=== PATIENT | male | born 1940 | race Caucasian/White ===

== ENCOUNTER 2020-03-08 17:49 | Inpatient (IN) | payer MEDICARE, OTHER ==
[~2020-03-08] VITALS: Ht 182.9 cm; Wt 67.0 kg
[2020-03-08] MEDS ORDERED: OLAN5TAB3 PO (18:08)
[2020-03-08] MEDS ORDERED: TAMS0.4C97 PO (18:08)
[2020-03-08] MEDS ORDERED: ESCITALOPRAM OX10 MG PO (18:08)
[2020-03-08] MEDS ORDERED: LORA0.5T21 PO ×2 (18:08)
[2020-03-08] MEDS ORDERED: MEMA10TA PO (18:08)
[2020-03-08] MEDS ORDERED: ASPI-630 PO (18:08)
[2020-03-08] MEDS ORDERED: [UNRECOGNIZED DRUG - CODE] PO (18:08)
[2020-03-08] MEDS ORDERED: NITR100C63 PO (18:08)
[2020-03-08] MEDS ORDERED: SIMV40TA18 PO (18:08)
[2020-03-08] MEDS ORDERED: vitamin d3 PO (18:08)
[2020-03-08] MEDS ORDERED: TRAZ-125 PO (18:08)
[2020-03-08] MEDS ORDERED: OLAN2.5T3 PO (18:08)
[2020-03-08] MEDS ORDERED: ACET325T21 PO (18:08)
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
[2020-03-08 20:00] VITALS: BP 151/81
[2020-03-08] MEDS ORDERED: MAG HYDROX/AL HYDROX/SIMETH 30 ML ORAL.SUSP PO PRN (20:00)
[2020-03-08] MEDS ORDERED: METHYL SALICYLATE/MENTHOL TOPICAL OINTMENT 57GM TUBE. TP PRN (20:00)
[2020-03-08] MEDS ORDERED: ACETAMINOPHEN 325 MG TABLET PO PRN (20:00)
[2020-03-08] MEDS: OLANZapine 5 MG TABLET PO SCH (20:35)
[2020-03-08] MEDS: MEMANTINE 10 MG TABLET. PO SCH (20:35)
[2020-03-08] MEDS: traZODone 100 MG TABLET. PO SCH (20:35)
[2020-03-08] MEDS: NITROFURANTOIN MONOHYD/M-CRYST 100 MG CAPSULE. PO SCH (20:35)
[2020-03-08] MEDS: SIMVASTATIN 40 MG TABLET. PO SCH (20:35)
[2020-03-08 20:37] LABS: BASO % 1 % (0-3); EOS # 0.2 x10^3/uL (0.0-0.7); EOS % 2 % (0-3); HEMATOCRIT 45.7 % (39.0-53.0); LYMPH # 0.9 x10^3/uL (1.0-4.8); LYMPH % 13 % (24-48); MEAN CORPUSCULAR HEMOGLOBIN 30 pg (25-35); MEAN CORPUSCULAR HGB CONC 33 g/dL (31-37); MEAN CORPUSCULAR VOLUME 91 fL (79-100); MONO % 14 % (0-9); NEUT % 70 % (31-73); PLATELET COUNT 239 x10^3/uL (140-400); WHITE BLOOD COUNT 7.1 x10^3/uL (4.0-11.0)
[2020-03-08 20:41] LABS: ALBUMIN 3.9 g/dL (3.4-5.0); CALCIUM 9.3 mg/dL (8.5-10.1); CREATININE 1.2 mg/dL (0.7-1.3); GFR 58.3; MAGNESIUM 2.4 mg/dL (1.8-2.4); POTASSIUM 3.8 mmol/L (3.5-5.1); TOTAL BILIRUBIN 0.3 mg/dL (0.2-1.0); TOTAL PROTEIN 7.8 g/dL (6.4-8.2)
[2020-03-08] MEDS ORDERED: MAGNESIUM SULFATE PO SCH (21:00)
--- NOTE | 2020-03-08 22:10 | PDOC ---
Exam Note: Shravan Note: Please also refer to the separate dictated note~for this date of service dictated separately.~Patient seen individually. Discussed the patient with Nursing staff reviewed the chart.~Reviewed interim history and current functioning. Reviewed vital signs,~Labs/ Radiology~and current medications noted below. Continue current treatment with the changes noted in the dictated addendum note Assessment: Vital Signs/I&O: Vital Signs Date Time Temp Pulse Resp B/P (MAP) Pulse Ox O2 Delivery O2 Flow Rate FiO2 03/08/20 20:00 97.6 60 18 151/81 (104) 96 Room Air Labs: Laboratory Tests Test 03/08/20 20:15 White Blood Count 7.1 x10^3/uL (4.0-11.0) Red Blood Count 5.00 x10^6/uL (4.30-5.70) Hemoglobin 15.0 g/dL (13.0-17.5) Hematocrit 45.7 % (39.0-53.0) Mean Corpuscular Volume 91 fL (79-100) Mean Corpuscular Hemoglobin 30 pg (25-35) Mean Corpuscular Hemoglobin Concent 33 g/dL (31-37) Red Cell Distribution Width 15.0 % (11.5-14.5) H Platelet Count 239 x10^3/uL (140-400) Neutrophils (%) (Auto) 70 % (31-73) Lymphocytes (%) (Auto) 13 % (24-48) L Monocytes (%) (Auto) 14 % (0-9) H Eosinophils (%) (Auto) 2 % (0-3) Basophils (%) (Auto) 1 % (0-3) Neutrophils # (Auto) 5.0 x10^3uL (1.8-7.7) Lymphocytes # (Auto) 0.9 x10^3/uL (1.0-4.8) L Monocytes # (Auto) 1.0 x10^3/uL (0.0-1.1) Eosinophils # (Auto) 0.2 x10^3/uL (0.0-0.7) Basophils # (Auto) 0.0 x10^3/uL (0.0-0.2) Sodium Level 144 mmol/L (136-145) Potassium Level 3.8 mmol/L (3.5-5.1) Chloride Level 106 mmol/L (98-107) Carbon Dioxide Level 31 mmol/L (21-32) Anion Gap 7 (6-14) Blood Urea Nitrogen 20 mg/dL (8-26) Creatinine 1.2 mg/dL (0.7-1.3) Estimated GFR (Cockcroft-Gault) 58.3 BUN/Creatinine Ratio 17 (6-20) Glucose Level 87 mg/dL (70-99) Calcium Level 9.3 mg/dL (8.5-10.1) Magnesium Level 2.4 mg/dL (1.8-2.4) Total Bilirubin 0.3 mg/dL (0.2-1.0) Aspartate Amino Transferase (AST) 16 U/L (15-37) Alanine Aminotransferase (ALT) 22 U/L (16-63) Alkaline Phosphatase 60 U/L (46-116) Total Protein 7.8 g/dL (6.4-8.2) Albumin 3.9 g/dL (3.4-5.0) Albumin/Globulin Ratio 1.0 (1.0-1.7) Current Medications: Meds: Current Medications Medications (Trade) Dose Ordered Sig/Dl Route PRN Reason Start Time Stop Time Status Last Admin Dose Admin Simvastatin (Zocor) 40 mg HS PO 03/08/20 21:00 03/08/20 20:35 Nitrofurantoin Macrocrystals (Macrobid) 100 mg BID PO 03/08/20 21:00 03/14/20 20:59 03/08/20 20:35 Memantine (Namenda) 10 mg BID PO 03/08/20 21:00 03/08/20 20:35 Olanzapine (ZyPREXA) 5 mg HS PO 03/08/20 21:00 03/08/20 20:35 Trazodone HCl (Desyrel) 100 mg HS PO 03/08/20 21:00 03/08/20 20:35 I have reviewed the current psychotropics carefully including drug interactions. Risk benefit ratio favors no change other than as noted in my dictated progress note. LARRY LOUIS MD Mar 08, 2020 22:10
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
[2020-03-09] MEDS: LORazepam 0.5 MG TABLET PO PRN (04:46)
--- NOTE | 2020-03-09 04:55 | NUR ---
Pt attempting to get up without assist, gait unsteady. Staff attempted to toilet pt without success and pt was escorted to the day room with staff. Pt restless, disorganized, and anxious. Pt continues to attempt to get up without assist despite staff reminders. PRN Ativan administered.
[2020-03-09 05:42] VITALS: BP 161/72
[2020-03-09] MEDS ORDERED: CITALOPRAM 20 MG TABLET. PO SCH (09:00)
[2020-03-09] MEDS: TAMSULOSIN 0.4 MG CAP.ER.24H. PO SCH (09:15)
[2020-03-09] MEDS: NITROFURANTOIN MONOHYD/M-CRYST 100 MG CAPSULE. PO SCH ×2 (09:15→20:14)
[2020-03-09] MEDS: CHOLECALCIFEROL (VITAMIN D3) 1,000 UNIT TABLET PO SCH (09:15)
[2020-03-09] MEDS: OLANZapine 2.5 MG TABLET PO SCH (09:15)
[2020-03-09] MEDS: ASPIRIN CHEWABLE 81 MG TABLET. PO SCH (09:15)
[2020-03-09] MEDS: MEMANTINE 10 MG TABLET. PO SCH ×2 (09:15→20:14)
--- NOTE | 2020-03-09 10:11 | NUR ---
Patient coal Addendum: 03/09/20 at 1013 by JEREL STANLEY RN calm and cooperative. Patient soft spoken and difficult to understand. Patient calmly eating breakfast and is pleasant towards staff. no further needs at this time.
[2020-03-09 11:18] LABS: THYROID STIM HORMONE (TSH) 2.825 uIU/mL (0.358-3.740)
[2020-03-09] MEDS: LORazepam 0.5 MG TABLET PO SCH (12:43)
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
[2020-03-09 16:13] VITALS: BP 130/72
[2020-03-09] MEDS: MIRTAZAPINE 7.5 MG TABLET. PO SCH (20:14)
[2020-03-09] MEDS: OLANZapine 5 MG TABLET PO SCH (20:14)
[2020-03-09] MEDS: SIMVASTATIN 40 MG TABLET. PO SCH (20:14)
[2020-03-09] MEDS: traZODone 100 MG TABLET. PO SCH (20:15)
--- NOTE | 2020-03-09 21:56 | PDOC ---
Exam Note: Shravan Note: Please also refer to the separate dictated note~for this date of service dictated separately.~Patient seen individually. Discussed the patient with Nursing staff reviewed the chart.~Reviewed interim history and current functioning. Reviewed vital signs,~Labs/ Radiology~and current medications noted below. Continue current treatment with the changes noted in the dictated addendum note Assessment: Vital Signs/I&O: Vital Signs Date Time Temp Pulse Resp B/P (MAP) Pulse Ox O2 Delivery O2 Flow Rate FiO2 03/09/20 16:13 97.7 52 16 130/72 (91) 96 Room Air I & O 03/08/20 03/08/20 03/09/20 15:00 23:00 07:00 Intake Total 360 ml Balance 360 ml Current Medications: Meds: Current Medications Medications (Trade) Dose Ordered Sig/Dl Route PRN Reason Start Time Stop Time Status Last Admin Dose Admin Aspirin (Aspirin Chewable) 81 mg DAILY PO 03/09/20 09:00 03/09/20 09:15 Tamsulosin HCl (Flomax) 0.4 mg DAILY PO 03/09/20 09:00 03/09/20 09:15 Citalopram Hydrobromide (CeleXA) 20 mg DAILY PO 03/09/20 09:00 03/09/20 17:11 DC 03/09/20 09:15 Vitamin D (Vitamin D3) 1,000 unit DAILY PO 03/09/20 09:00 03/09/20 09:15 Lorazepam (Ativan) 0.5 mg AFTRNOON PO 03/09/20 14:00 03/09/20 12:43 Olanzapine (ZyPREXA) 2.5 mg DAILY PO 03/09/20 09:00 03/09/20 09:15 Mirtazapine (Remeron) 7.5 mg QHS PO 03/09/20 21:00 03/09/20 20:14 I have reviewed the current psychotropics carefully including drug interactions. Risk benefit ratio favors no change other than as noted in my dictated progress note. Diagnosis: Problems: (1) Major neurocognitive disorder (2) Dementia in Alzheimer's disease with delusions (3) Dementia of the Alzheimer's type with early onset with behavioral disturbance (4) Dementia in Alzheimer's disease with depression (5) Dementia, vascular, with delusions (6) Dementia, vascular, with depression (7) Anxiety disorder, unspecified (8) Impulse control disorder, unspecified LARRY LOUIS MD Mar 09, 2020 21:56
--- NOTE | 2020-03-09 23:15 | NUR ---
Pt wandering unit all evening. Pt highly disorganized, needing many reminders to keep his mask on. Compliant with whole medications. A/O to name.
[2020-03-10 02:06] LABS: THYROXINE 6.1 ug/dL (4.5-12.0)
[2020-03-10 04:55] VITALS: BP 146/98
[2020-03-10 05:37] LABS: HEMOGLOBIN A1C 5.5 % (4.8-5.6)
[2020-03-10] MEDS: SERTRALINE 50 MG TABLET. PO SCH (08:40)
[2020-03-10] MEDS: MEMANTINE 10 MG TABLET. PO SCH ×2 (08:40→20:20)
[2020-03-10] MEDS: TAMSULOSIN 0.4 MG CAP.ER.24H. PO SCH (08:40)
[2020-03-10] MEDS: CHOLECALCIFEROL (VITAMIN D3) 1,000 UNIT TABLET PO SCH (08:41)
[2020-03-10] MEDS: ASPIRIN CHEWABLE 81 MG TABLET. PO SCH (08:41)
[2020-03-10] MEDS: NITROFURANTOIN MONOHYD/M-CRYST 100 MG CAPSULE. PO SCH ×2 (08:41→20:20)
[2020-03-10] MEDS: OLANZapine 2.5 MG TABLET PO SCH (08:41)
--- NOTE | 2020-03-10 09:57 | NUR ---
Patient encouraged to wear mask out of room. Patient calm and cooperative. Patient has no further needs.
[2020-03-10] MEDS: LORazepam 0.5 MG TABLET PO SCH (12:43)
[2020-03-10 16:08] VITALS: BP 129/74
[2020-03-10] MEDS: traZODone 100 MG TABLET. PO SCH (20:20)
[2020-03-10] MEDS: SIMVASTATIN 40 MG TABLET. PO SCH (20:20)
[2020-03-10] MEDS: MIRTAZAPINE 7.5 MG TABLET. PO SCH (20:20)
[2020-03-10] MEDS: OLANZapine 5 MG TABLET PO SCH (20:20)
--- NOTE | 2020-03-10 21:58 | PDOC ---
Exam Note: Shravan Note: Please also refer to the separate dictated note~for this date of service dictated separately.~Patient seen individually. Discussed the patient with Nursing staff reviewed the chart.~Reviewed interim history and current functioning. Reviewed vital signs,~Labs/ Radiology~and current medications noted below. Continue current treatment with the changes noted in the dictated addendum note Assessment: Vital Signs/I&O: Vital Signs Date Time Temp Pulse Resp B/P (MAP) Pulse Ox O2 Delivery O2 Flow Rate FiO2 03/10/20 19:42 98.8 96 03/10/20 16:08 66 16 129/74 (92) 03/09/20 16:13 Room Air I & O 03/09/20 03/09/20 03/10/20 15:00 23:00 07:00 Intake Total 240 ml 360 ml Balance 240 ml 360 ml Current Medications: Meds: Current Medications Medications (Trade) Dose Ordered Sig/Dl Route PRN Reason Start Time Stop Time Status Last Admin Dose Admin Sertraline HCl (Zoloft) 50 mg DAILY PO 03/10/20 09:00 03/10/20 08:40 I have reviewed the current psychotropics carefully including drug interactions. Risk benefit ratio favors no change other than as noted in my dictated progress note. Diagnosis: Problems: (1) Impulse control disorder, unspecified (2) Anxiety disorder, unspecified (3) Dementia, vascular, with depression (4) Dementia, vascular, with delusions (5) Dementia in Alzheimer's disease with depression (6) Dementia in Alzheimer's disease with delusions (7) Dementia of the Alzheimer's type with early onset with behavioral disturbance (8) Major neurocognitive disorder LARRY LOUIS MD Mar 10, 2020 21:58
--- NOTE | 2020-03-10 22:23 | NUR ---
Pt wandering unit this evening needing reminders to keep his mask on. Compliant with whole medications. Pleasantly confused.
[2020-03-11 05:46] VITALS: BP 138/62
[2020-03-11] MEDS: SERTRALINE 50 MG TABLET. PO SCH (08:56)
[2020-03-11] MEDS: NITROFURANTOIN MONOHYD/M-CRYST 100 MG CAPSULE. PO SCH ×2 (08:56→20:11)
[2020-03-11] MEDS: CHOLECALCIFEROL (VITAMIN D3) 1,000 UNIT TABLET PO SCH (08:56)
[2020-03-11] MEDS: TAMSULOSIN 0.4 MG CAP.ER.24H. PO SCH (08:56)
[2020-03-11] MEDS: MEMANTINE 10 MG TABLET. PO SCH ×2 (08:56→20:11)
[2020-03-11] MEDS: ASPIRIN CHEWABLE 81 MG TABLET. PO SCH (08:56)
--- NOTE | 2020-03-11 10:52 | NUR ---
Pt is pleasant, wandering hallway, forgets to wear mask or takes mask off. Found wandering in patients rooms. Pt needs frequent reminders to wear mask. Pt stated to nurse, "Im looking for people who are ready for war." RN directed patient back to his room, pt compliant. Pt compliant with meds and assessment but does have short attention span. WCTM.
[2020-03-11] MEDS: LORazepam 0.5 MG TABLET PO SCH (13:11)
[2020-03-11] MEDS: MAGNESIUM HYDROXIDE 2,400 MG/30 ML ORAL.SUSP. PO PRN (13:11)
--- NOTE | 2020-03-11 14:05 | NUR ---
ACTIVITY THERAPY ASSESSMENT Completed based on notes and interview. Pt. was sitting in the hallway but agreeable to speak with TRANSFORMER STOCK CLERK. He didn't have much to say but when asked if he had been here before, he said yes, him and his dad built this place. 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 He did mention how he always has on the "tv and radio" on. Pt. goes by "Arnol," talked softly and was a little hard to understand, he wanders the unit, often into other people's room, and needs reminders to wear his mask correctly. Pt. will need guidance and support to engage activities. Pt. is pleasantly confused and generally controlled and cooperative. Initial goal aimed to increase leisure engagement: Pt. will participate in at least three individual Activity Therapy sessions before discharge.
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
[2020-03-11 16:14] VITALS: BP 143/82
[2020-03-11] MEDS: SIMVASTATIN 40 MG TABLET. PO SCH (20:11)
[2020-03-11] MEDS: MIRTAZAPINE 7.5 MG TABLET. PO SCH (20:11)
[2020-03-11] MEDS: OLANZapine 5 MG TABLET PO SCH (20:11)
[2020-03-11] MEDS: traZODone 100 MG TABLET. PO SCH (20:11)
--- NOTE | 2020-03-11 21:56 | PDOC ---
Exam Note: Shravan Note: Please also refer to the separate dictated note~for this date of service dictated separately.~Patient seen individually. Discussed the patient with Nursing staff reviewed the chart.~Reviewed interim history and current functioning. Reviewed vital signs,~Labs/ Radiology~and current medications noted below. Continue current treatment with the changes noted in the dictated addendum note Assessment: Vital Signs/I&O: Vital Signs Date Time Temp Pulse Resp B/P (MAP) Pulse Ox O2 Delivery O2 Flow Rate FiO2 03/11/20 16:14 98.4 59 18 143/82 (102) 97 03/09/20 16:13 Room Air I & O 03/10/20 03/10/20 03/11/20 15:00 23:00 07:00 Intake Total 300 ml 360 ml Balance 300 ml 360 ml Current Medications: I have reviewed the current psychotropics carefully including drug interactions. Risk benefit ratio favors no change other than as noted in my dictated progress note. Diagnosis: Problems: (1) Impulse control disorder, unspecified (2) Anxiety disorder, unspecified (3) Dementia, vascular, with depression (4) Dementia, vascular, with delusions (5) Dementia in Alzheimer's disease with depression (6) Dementia in Alzheimer's disease with delusions (7) Dementia of the Alzheimer's type with early onset with behavioral disturbance (8) Major neurocognitive disorder LARRY LOUIS MD Mar 11, 2020 21:56
--- NOTE | 2020-03-11 23:51 | NUR ---
Pt wandering around unit all evening. Compliant with whole medications and shower. Pleasantly confused. Often forgets to wear mask and needs frequent reminders.
[2020-03-12 05:51] VITALS: BP 107/60
--- NOTE | 2020-03-12 07:01 | PDOC ---
Exam Note: Shravan Note: This note is a late entry for 03/09/2020 covers elements not covered in my initial note. Subjective: The patient was evaluated face to face in the evening of 03/09/2020 with Cordell SALAZAR. The patient slept 3-1/4 hours previous evening. He has been in his room, much of the day and more-so after lunch, somewhat soft-spoken compliant with medications, oriented x1. Review of Systems: No CV, , pulmonary, eye, ENT system symptoms on review. Reliability poor. Mental Status Exam: Oriented to himself. Insight and judgment, recent and remote memory, attention and concentration, fund of knowledge is poor consistent with his diagnosis. Laboratory Data: Reviewed. Impression: Major neurocognitive disorder, Alzheimer, vascular with delusion, depression, behavioral disturbance. Anxiety disorder unspecified. Impulse con trol disorder unspecified. Plan: Continue psychotropics from initial note. Change Celexa to Zoloft 50 mg a day. Start Remeron 7.5 mg h.s. for insomnia and anxiety. Maintain Ativan p.r.n. We will stop the Ativan schedule 0.5 mg 1400 hours. Maintain Namenda 10 mg b.i.d., trazodone 100 mg h.s., Zyprexa 2.5 mg daily and 5 mg h.s. We may need to reduce this unless we see psychotic symptoms resurfacing. Assessment: Vital Signs/I&O: Vital Signs Date Time Temp Pulse Resp B/P (MAP) Pulse Ox O2 Delivery O2 Flow Rate FiO2 03/12/20 05:51 98.1 54 16 107/60 (76) 93 03/09/20 16:13 Room Air I & O 03/11/20 03/11/20 03/12/20 15:00 23:00 07:00 Intake Total 720 ml 80 ml 120 ml Balance 720 ml 80 ml 120 ml Current Medications: I have reviewed the current psychotropics carefully including drug interactions. Risk benefit ratio favors no change other than as noted in my dictated progress note. Diagnosis: Problems: (1) Impulse control disorder, unspecified (2) Anxiety disorder, unspecified (3) Dementia, vascular, with depression (4) Dementia, vascular, with delusions (5) Dementia in Alzheimer's disease with depression (6) Dementia in Alzheimer's disease with delusions (7) Dementia of the Alzheimer's type with early onset with behavioral disturbance (8) Major neurocognitive disorder LARRY LOUIS MD Mar 12, 2020 07:01
--- NOTE | 2020-03-12 07:40 | PDOC ---
Exam Note: Shravan Note: This note is a late entry for 03/10/2020 covers elements not covered in my initial note. Subjective: The patient was evaluated on telehealth rounds in the evening of 03/10/2020 with Zeyad Hu RN. Nursing report was with Cordell SALAZAR. He was somewhat more verbal in the morning, later again not very interactive. Speech is low in rate and rhythm, low in volume. Review of Systems: No CV, , pulmonary, eye, ENT system symptoms on review. Gait unsteady. Mental Status Exam: Oriented to himself. Insight and judgment, recent and remote memory, attention and concentration, fund of knowledge is poor consistent with his diagnoses. Laboratory Data: Reviewed. Impression: Major neurocognitive disorder Alzheimer vascular with delusion, depression, behavioral disturbance. Anxiety disorder unspecified. Impulse control disorder unspecified. Plan: Continue psychotropics from initial note. We will go ahead and stop the a.m. Zyprexa 2.5 mg. Continue 5 mg h.s. and in 3 days drop the h.s. dosage down to 2.5 mg a day to help reduce daytime sedation. Continue rest of the psy chotropics unchanged including Ativan 0.5 mg at 1400, Namenda 10 mg b.i.d., trazodone h.s. Remeron and Zoloft. Adjust further as clinically indicated. Assessment: Vital Signs/I&O: Vital Signs Date Time Temp Pulse Resp B/P (MAP) Pulse Ox O2 Delivery O2 Flow Rate FiO2 03/12/20 05:51 98.1 54 16 107/60 (76) 93 03/09/20 16:13 Room Air I & O 03/11/20 03/11/20 03/12/20 15:00 23:00 07:00 Intake Total 720 ml 80 ml 120 ml Balance 720 ml 80 ml 120 ml Current Medications: I have reviewed the current psychotropics carefully including drug interactions. Risk benefit ratio favors no change other than as noted in my dictated progress note. Diagnosis: Problems: (1) Impulse control disorder, unspecified (2) Anxiety disorder, unspecified (3) Dementia, vascular, with depression (4) Dementia, vascular, with delusions (5) Dementia in Alzheimer's disease with depression (6) Dementia in Alzheimer's disease with delusions (7) Dementia of the Alzheimer's type with early onset with behavioral disturbance (8) Major neurocognitive disorder LARRY LOUIS MD Mar 12, 2020 07:40
[2020-03-12] MEDS: ASPIRIN CHEWABLE 81 MG TABLET. PO SCH (09:39)
[2020-03-12] MEDS: CHOLECALCIFEROL (VITAMIN D3) 1,000 UNIT TABLET PO SCH (09:39)
[2020-03-12] MEDS: NITROFURANTOIN MONOHYD/M-CRYST 100 MG CAPSULE. PO SCH ×2 (09:39→20:39)
[2020-03-12] MEDS: MEMANTINE 10 MG TABLET. PO SCH ×2 (09:40→20:39)
[2020-03-12] MEDS: SERTRALINE 50 MG TABLET. PO SCH (09:40)
[2020-03-12] MEDS: TAMSULOSIN 0.4 MG CAP.ER.24H. PO SCH (09:42)
[2020-03-12] MEDS: LORazepam 0.5 MG TABLET PO SCH (13:31)
--- NOTE | 2020-03-12 13:53 | NUR ---
Patient has been in his room and in other rooms this shift. He is cooperative with medications however this morning he was quite confused and spit them into the water cup. Medication was then given meds crushed in pudding. He is very confused and forgets to wear his mask while in the hallways or other common areas. He can be verbally redirected to put the mask back on but will forget it again shortly after. Patient has had no aggression, he slept 6.5 hours last night.
[2020-03-12 16:13] VITALS: BP 124/70
[2020-03-12] MEDS: traZODone 100 MG TABLET. PO SCH (20:39)
[2020-03-12] MEDS: MIRTAZAPINE 7.5 MG TABLET. PO SCH (20:39)
[2020-03-12] MEDS: SIMVASTATIN 40 MG TABLET. PO SCH (20:39)
[2020-03-12] MEDS: OLANZapine 5 MG TABLET PO SCH (20:39)
--- NOTE | 2020-03-12 22:05 | PDOC ---
Exam Note: Shravan Note: Please also refer to the separate dictated note~for this date of service dictated separately.~Patient seen individually. Discussed the patient with Nursing staff reviewed the chart.~Reviewed interim history and current functioning. Reviewed vital signs,~Labs/ Radiology~and current medications noted below. Continue current treatment with the changes noted in the dictated addendum note Assessment: Vital Signs/I&O: Vital Signs Date Time Temp Pulse Resp B/P (MAP) Pulse Ox O2 Delivery O2 Flow Rate FiO2 03/12/20 16:13 97.5 56 16 124/70 (88) 93 Room Air I & O 03/11/20 03/11/20 03/12/20 15:00 23:00 07:00 Intake Total 720 ml 80 ml 120 ml Balance 720 ml 80 ml 120 ml Current Medications: I have reviewed the current psychotropics carefully including drug interactions. Risk benefit ratio favors no change other than as noted in my dictated progress note. Diagnosis: Problems: (1) Impulse control disorder, unspecified (2) Anxiety disorder, unspecified (3) Dementia, vascular, with depression (4) Dementia, vascular, with delusions (5) Dementia in Alzheimer's disease with depression (6) Dementia in Alzheimer's disease with delusions (7) Dementia of the Alzheimer's type with early onset with behavioral disturbance (8) Major neurocognitive disorder LARRY LOUIS MD Mar 12, 2020 22:05
--- NOTE | 2020-03-12 23:42 | NUR ---
Nursing Note: Location of Patient during Assessment: Pt wandering in hallway at shift change. Behaviors Mood and Affect this shift: Pt calm, disorganized, and pleasantly confused. Medication Compliant: Compliant with HS medications administered crushed in pudding. Assessment Compliant: Cooperative and compliant with assessment. Response After Interventions: Pt calm, pleasantly confused.
[2020-03-13 06:38] VITALS: BP 96/58
--- NOTE | 2020-03-13 07:15 | PDOC ---
Exam Note: Shravan Note: This note is a late entry for 03/11/2020 covers elements not covered in my initial note. Subjective: The patient was reviewed face to face in the morning of 03/11/2020 with treatment team meeting with Crys (social service staff), Linda, activity therapy, and Nba SALAZAR. The patient slept 7-1/4 hours previous night. He remains confused, but less agitated, little more verbal. Review of Systems: No CV, , pulmonary, eye, ENT system symptoms on review. Gait unsteady. Reliability poor. Mental Status Exam: He is quite pleasant, but confused with short-term memory deficits. No suicidal or homicidal ideation. Laboratory Data: Reviewed. Impression: Major neurocognitive disorder Alzheimer vascular with delusion, depression, behavioral disturbance. Anxiety disorder unspecified. Impulse control disorder unspecified. Plan: No change from initial note. Assessment: Vital Signs/I&O: Vital Signs Date Time Temp Pulse Resp B/P (MAP) Pulse Ox O2 Delivery O2 Flow Rate FiO2 03/13/20 06:38 98.0 58 20 96/58 (71) 94 03/12/20 16:13 Room Air I & O 03/12/20 03/12/20 03/13/20 15:00 23:00 07:00 Intake Total 720 ml 360 ml Balance 720 ml 360 ml Current Medications: I have reviewed the current psychotropics carefully including drug interactions. Risk benefit ratio favors no change other than as noted in my dictated progress note. Diagnosis: Problems: (1) Impulse control disorder, unspecified (2) Anxiety disorder, unspecified (3) Dementia, vascular, with depression (4) Dementia, vascular, with delusions (5) Dementia in Alzheimer's disease with depression (6) Dementia in Alzheimer's disease with delusions (7) Dementia of the Alzheimer's type with early onset with behavioral disturbance (8) Major neurocognitive disorder LARRY LOUIS MD Mar 13, 2020 07:15
--- NOTE | 2020-03-13 07:27 | PDOC ---
Exam Note: Shravan Note: This note is a late entry for 03/12/2020 covers elements not covered in my initial note. Subjective: The patient was evaluated on telehealth rounds in the evening of 03/12/2020 because of the COVID-19 pandemic restrictions with [facility] nursing aid. Nursing report was with Tricia SALAZAR. He has been wandering. No agitation. He slept 6-1/2 hours, took his medications. He is on Ativan 0.25 mg 1400 hours. We will go ahead and stop this since it may be causing some paradoxical disinhibition. Review of Systems: No CV, , pulmonary, eye, ENT system symptoms on review. Reliability poor. Mental Status Exam: Oriented to himself. Insight and judgment, recent and remote memory, attention and concentration, fund of knowledge is poor consistent with his diagnoses. Laboratory Data: Reviewed. Impression: Major neurocognitive disorder Alzheimer vascular with delusion, depression, behavioral disturbance. Anxiety disorder unspecified. Impulse co ntrol disorder unspecified. Plan: Continue psychotropics from initial note. Stop the Ativan in the afternoon. Taper the scheduled Zyprexa. Adjust further as clinically indicated. Assessment: Vital Signs/I&O: Vital Signs Date Time Temp Pulse Resp B/P (MAP) Pulse Ox O2 Delivery O2 Flow Rate FiO2 03/13/20 06:38 98.0 58 20 96/58 (71) 94 03/12/20 16:13 Room Air I & O 03/12/20 03/12/20 03/13/20 15:00 23:00 07:00 Intake Total 720 ml 360 ml Balance 720 ml 360 ml Current Medications: I have reviewed the current psychotropics carefully including drug interactions. Risk benefit ratio favors no change other than as noted in my dictated progress note. Diagnosis: Problems: (1) Impulse control disorder, unspecified (2) Anxiety disorder, unspecified (3) Dementia, vascular, with depression (4) Dementia, vascular, with delusions (5) Dementia in Alzheimer's disease with depression (6) Dementia in Alzheimer's disease with delusions (7) Dementia of the Alzheimer's type with early onset with behavioral disturbance (8) Major neurocognitive disorder LARRY LOUIS MD Mar 13, 2020 07:27
[2020-03-13] MEDS: ASPIRIN CHEWABLE 81 MG TABLET. PO SCH (08:25)
[2020-03-13] MEDS: MEMANTINE 10 MG TABLET. PO SCH ×2 (08:25→21:08)
[2020-03-13] MEDS: SERTRALINE 50 MG TABLET. PO SCH (08:25)
[2020-03-13] MEDS: TAMSULOSIN 0.4 MG CAP.ER.24H. PO SCH (08:25)
[2020-03-13] MEDS: NITROFURANTOIN MONOHYD/M-CRYST 100 MG CAPSULE. PO SCH ×2 (08:25→21:07)
[2020-03-13] MEDS: CHOLECALCIFEROL (VITAMIN D3) 1,000 UNIT TABLET PO SCH (08:26)
--- NOTE | 2020-03-13 16:06 | NUR ---
patient is compliant with medications, he is disorganized and wanders into other patients room. He can be easily redirected and is calm and cooperative. No adverse behaviors noted at this time.
[2020-03-13 16:23] VITALS: BP 138/76
[2020-03-13] MEDS: SIMVASTATIN 40 MG TABLET. PO SCH (21:07)
[2020-03-13] MEDS: traZODone 100 MG TABLET. PO SCH (21:07)
[2020-03-13] MEDS: OLANZapine 5 MG TABLET PO SCH (21:07)
[2020-03-13] MEDS: MIRTAZAPINE 7.5 MG TABLET. PO SCH (21:08)
--- NOTE | 2020-03-13 22:02 | PDOC ---
Exam Note: Shravan Note: Please also refer to the separate dictated note~for this date of service dictated separately.~Patient seen individually. Discussed the patient with Nursing staff reviewed the chart.~Reviewed interim history and current functioning. Reviewed vital signs,~Labs/ Radiology~and current medications noted below. Continue current treatment with the changes noted in the dictated addendum note Assessment: Vital Signs/I&O: Vital Signs Date Time Temp Pulse Resp B/P (MAP) Pulse Ox O2 Delivery O2 Flow Rate FiO2 03/13/20 21:48 97.7 94 03/13/20 16:23 53 17 138/76 (96) 03/12/20 16:13 Room Air I & O 03/12/20 03/12/20 03/13/20 15:00 23:00 07:00 Intake Total 720 ml 360 ml Balance 720 ml 360 ml Current Medications: I have reviewed the current psychotropics carefully including drug interactions. Risk benefit ratio favors no change other than as noted in my dictated progress note. Diagnosis: Problems: (1) Impulse control disorder, unspecified (2) Anxiety disorder, unspecified (3) Dementia, vascular, with depression (4) Dementia, vascular, with delusions (5) Dementia in Alzheimer's disease with depression (6) Dementia in Alzheimer's disease with delusions (7) Dementia of the Alzheimer's type with early onset with behavioral disturbance (8) Major neurocognitive disorder LARRY LOUIS MD Mar 13, 2020 22:02
--- NOTE | 2020-03-14 00:10 | NUR ---
Nursing Note: Location of Patient during Assessment: Pt sitting in hallway. Behaviors Mood and Affect this shift: Pt calm, pleasantly confused, and disorganized. Medication Compliant: Pt compliant with medications administered whole this evening. Assessment Compliant: Cooperative and compliant with assessment and cares. Response After Interventions: Pt wandering in his room, restless, and having difficulty sleeping this shift. Pt currently sitting quietly in the hallway.
--- NOTE | 2020-03-14 00:12 | NUR ---
Nursing Note: Location of Patient during Assessment: Pt sitting quietly in the hallway. Behaviors Mood and Affect this shift: Pt calm, interactive, and pleasantly confused. Medication Compliant: Pt compliant with medications administered whole this evening. Assessment Compliant: Pt cooperative with assessment and cares. Response After Interventions: Pt currently resting in bed with eyes closed. Addendum: 03/14/20 at 0015 by YOLANDA CHISHOLM RN CHARTED ON THE WRONG PATIENT.
[2020-03-14 07:12] VITALS: BP 148/92
[2020-03-14] MEDS: NITROFURANTOIN MONOHYD/M-CRYST 100 MG CAPSULE. PO SCH (08:53)
[2020-03-14] MEDS: ASPIRIN CHEWABLE 81 MG TABLET. PO SCH (08:54)
[2020-03-14] MEDS: TAMSULOSIN 0.4 MG CAP.ER.24H. PO SCH (08:54)
[2020-03-14] MEDS: CHOLECALCIFEROL (VITAMIN D3) 1,000 UNIT TABLET PO SCH (08:54)
[2020-03-14] MEDS: MEMANTINE 10 MG TABLET. PO SCH ×2 (08:54→21:53)
[2020-03-14] MEDS: SERTRALINE 50 MG TABLET. PO SCH (08:54)
[2020-03-14 16:36] VITALS: BP 123/79
[2020-03-14] MEDS: OLANZapine 2.5 MG TABLET PO SCH (21:53)
[2020-03-14] MEDS: MIRTAZAPINE 7.5 MG TABLET. PO SCH (21:53)
[2020-03-14] MEDS: traZODone 100 MG TABLET. PO SCH (21:53)
[2020-03-14] MEDS: SIMVASTATIN 40 MG TABLET. PO SCH (21:53)
--- NOTE | 2020-03-14 22:03 | PDOC ---
Exam Note: Shravan Note: Please also refer to the separate dictated note~for this date of service dictated separately.~Patient seen individually. Discussed the patient with Nursing staff reviewed the chart.~Reviewed interim history and current functioning. Reviewed vital signs,~Labs/ Radiology~and current medications noted below. Continue current treatment with the changes noted in the dictated addendum note Assessment: Vital Signs/I&O: Vital Signs Date Time Temp Pulse Resp B/P (MAP) Pulse Ox O2 Delivery O2 Flow Rate FiO2 03/14/20 16:36 97.4 54 16 123/79 (94) 96 03/12/20 16:13 Room Air I & O 03/13/20 03/13/20 03/14/20 15:00 23:00 07:00 Intake Total 320 ml 320 ml Balance 320 ml 320 ml Current Medications: Meds: Current Medications Medications (Trade) Dose Ordered Sig/Dl Route PRN Reason Start Time Stop Time Status Last Admin Dose Admin Olanzapine (ZyPREXA) 2.5 mg QHS PO 03/14/20 21:00 03/14/20 21:53 I have reviewed the current psychotropics carefully including drug interactions. Risk benefit ratio favors no change other than as noted in my dictated progress note. Diagnosis: Problems: (1) Impulse control disorder, unspecified (2) Anxiety disorder, unspecified (3) Dementia, vascular, with depression (4) Dementia, vascular, with delusions (5) Dementia in Alzheimer's disease with depression (6) Dementia in Alzheimer's disease with delusions (7) Dementia of the Alzheimer's type with early onset with behavioral disturbance (8) Major neurocognitive disorder LARRY LOUIS MD Mar 14, 2020 22:03
--- NOTE | 2020-03-15 04:46 | NUR ---
Nursing Note The patient was located in his room as well as the hallways this shift. The patient was repeatedly found wandering the hallways without his mask on and became irritable when asked to put it back on. The patient took his medication whole on a spoon. The patient is currently sleeping in his room.
[2020-03-15 06:21] VITALS: BP 121/79
--- NOTE | 2020-03-15 07:03 | PDOC ---
Exam Note: Shravan Note: This note is a late entry for 03/13/2020 covers elements not covered in my initial note. Subjective: The patient was evaluated face to face in the evening of 03/13/2020 with Tricia SALAZAR. He slept 7-3/4 hours previous night. He has been wandering, forgets to use his mask, takes his medications crushed. Review of Systems: No CV, , pulmonary, eye, ENT system symptoms on review. Mental Status Exam: Oriented to himself. Insight and judgment, recent and remote memory, attention and concentration, fund of knowledge is poor consistent with his diagnoses. Laboratory Data: Reviewed. Impression: Major neurocognitive disorder Alzheimer vascular with delusion, depression, behavioral disturbance. Anxiety disorder unspecified. Impulse control disorder unspecified. Plan: Continue psychotropics from initial note. Assessment: Vital Signs/I&O: Vital Signs Date Time Temp Pulse Resp B/P (MAP) Pulse Ox O2 Delivery O2 Flow Rate FiO2 03/15/20 06:21 97.4 69 20 121/79 (93) 96 03/12/20 16:13 Room Air I & O 03/14/20 03/14/20 03/15/20 15:00 23:00 07:00 Intake Total 600 ml 240 ml Balance 600 ml 240 ml Current Medications: Meds: Current Medications Medications (Trade) Dose Ordered Sig/Dl Route PRN Reason Start Time Stop Time Status Last Admin Dose Admin Olanzapine (ZyPREXA) 2.5 mg QHS PO 03/14/20 21:00 03/14/20 21:53 I have reviewed the current psychotropics carefully including drug interactions. Risk benefit ratio favors no change other than as noted in my dictated progress note. Diagnosis: Problems: (1) Impulse control disorder, unspecified (2) Anxiety disorder, unspecified (3) Dementia, vascular, with depression (4) Dementia, vascular, with delusions (5) Dementia in Alzheimer's disease with depression (6) Dementia in Alzheimer's disease with delusions (7) Dementia of the Alzheimer's type with early onset with behavioral disturbance (8) Major neurocognitive disorder LARRY LOUIS MD Mar 15, 2020 07:03
--- NOTE | 2020-03-15 07:32 | PDOC ---
Exam Note: Shravan Note: This note is a late entry for 03/14/2020 covers elements not covered in my initial note. Subjective: The patient was evaluated face to face in the morning of 03/14/2020 for treatment team meeting with Gifty (social service staff), Linda, activity therapy, and Tricia SALAZAR. The patient remains confused, redirectable. He slept 9-1/2 hours previous night. Review of Systems: No CV, , pulmonary, eye, ENT system symptoms on review. Reliability poor. Mental Status Exam: Oriented to himself. Insight and judgment, recent and remote memory, attention and concentration, fund of knowledge is poor consistent with his diagnoses. Laboratory Data: Reviewed. Impression: Major neurocognitive disorder Alzheimer vascular with delusion, depression, behavioral disturbance. Anxiety disorder unspecified. Impulse control disorder unspecified. Plan: Continue psychotropics from initial note. Assessment: Vital Signs/I&O: Vital Signs Date Time Temp Pulse Resp B/P (MAP) Pulse Ox O2 Delivery O2 Flow Rate FiO2 03/15/20 06:21 97.4 69 20 121/79 (93) 96 03/12/20 16:13 Room Air I & O 03/14/20 03/14/20 03/15/20 15:00 23:00 07:00 Intake Total 600 ml 240 ml Balance 600 ml 240 ml Current Medications: Meds: Current Medications Medications (Trade) Dose Ordered Sig/Dl Route PRN Reason Start Time Stop Time Status Last Admin Dose Admin Olanzapine (ZyPREXA) 2.5 mg QHS PO 03/14/20 21:00 03/14/20 21:53 I have reviewed the current psychotropics carefully including drug interactions. Risk benefit ratio favors no change other than as noted in my dictated progress note. Diagnosis: Problems: (1) Impulse control disorder, unspecified (2) Anxiety disorder, unspecified (3) Dementia, vascular, with depression (4) Dementia, vascular, with delusions (5) Dementia in Alzheimer's disease with depression (6) Dementia in Alzheimer's disease with delusions (7) Dementia of the Alzheimer's type with early onset with behavioral disturbance (8) Major neurocognitive disorder LARRY LOUIS MD Mar 15, 2020 07:32
[2020-03-15] MEDS: CHOLECALCIFEROL (VITAMIN D3) 1,000 UNIT TABLET PO SCH (08:54)
[2020-03-15] MEDS: TAMSULOSIN 0.4 MG CAP.ER.24H. PO SCH (08:54)
[2020-03-15] MEDS: SERTRALINE 50 MG TABLET. PO SCH (08:54)
[2020-03-15] MEDS: MEMANTINE 10 MG TABLET. PO SCH ×2 (08:54→21:42)
[2020-03-15] MEDS: ASPIRIN CHEWABLE 81 MG TABLET. PO SCH (08:54)
[2020-03-15 09:51] LABS: BASO # 0.1 x10^3/uL (0.0-0.2); BASO % 1 % (0-3); EOS # 0.1 x10^3/uL (0.0-0.7); EOS % 1 % (0-3); HEMATOCRIT 48.6 % (39.0-53.0); LYMPH # 0.7 x10^3/uL (1.0-4.8); LYMPH % 11 % (24-48); MEAN CORPUSCULAR HEMOGLOBIN 30 pg (25-35); MEAN CORPUSCULAR HGB CONC 33 g/dL (31-37); MEAN CORPUSCULAR VOLUME 90 fL (79-100); MONO # 0.6 x10^3/uL (0.0-1.1); MONO % 9 % (0-9); NEUT # 5.3 x10^3uL (1.8-7.7); NEUT % 78 % (31-73); PLATELET COUNT 235 x10^3/uL (140-400); RED BLOOD COUNT 5.37 x10^6/uL (4.30-5.70); RED CELL DISTRIBUTION WIDTH 15.2 % (11.5-14.5); WHITE BLOOD COUNT 6.8 x10^3/uL (4.0-11.0)
[2020-03-15 10:05] LABS: ALBUMIN 3.9 g/dL (3.4-5.0); CALCIUM 9.2 mg/dL (8.5-10.1); CREATININE 1.3 mg/dL (0.7-1.3); GFR 53.1; POTASSIUM 3.7 mmol/L (3.5-5.1); TOTAL BILIRUBIN 0.6 mg/dL (0.2-1.0); TOTAL PROTEIN 7.9 g/dL (6.4-8.2)
--- NOTE | 2020-03-15 10:06 | NUR ---
Patient is confused, needs a lot of redirection. Pt repeatedly trying to come out of room without mask. Pt is forgetful, compliant with medications crushed and in pudding. Pt is easily distracted during tasks. WCTM.
--- NOTE | 2020-03-15 13:40 | NUR ---
Resumed pt care. Pt up in secure rossi as pt will not leave mask in place.
--- NOTE | 2020-03-15 15:58 | NUR ---
SW left message for pt son to contact SW when possible. If DEIDRE was not available, he could contact nursing for an update on pt.
[2020-03-15 16:59] VITALS: BP 124/80
[2020-03-15] MEDS: MIRTAZAPINE 7.5 MG TABLET. PO SCH (21:41)
[2020-03-15] MEDS: SIMVASTATIN 40 MG TABLET. PO SCH (21:42)
[2020-03-15] MEDS: traZODone 100 MG TABLET. PO SCH (21:42)
[2020-03-15] MEDS: OLANZapine 2.5 MG TABLET PO SCH (21:42)
--- NOTE | 2020-03-15 21:57 | PDOC ---
Exam Note: Shravan Note: Please also refer to the separate dictated note~for this date of service dictated separately.~Patient seen individually. Discussed the patient with Nursing staff reviewed the chart.~Reviewed interim history and current functioning. Reviewed vital signs,~Labs/ Radiology~and current medications noted below. Continue current treatment with the changes noted in the dictated addendum note Assessment: Vital Signs/I&O: Vital Signs Date Time Temp Pulse Resp B/P (MAP) Pulse Ox O2 Delivery O2 Flow Rate FiO2 03/15/20 16:59 97.3 76 20 124/80 (95) 95 03/12/20 16:13 Room Air I & O 03/14/20 03/14/20 03/15/20 15:00 23:00 07:00 Intake Total 600 ml 240 ml Balance 600 ml 240 ml Labs: Laboratory Tests Test 03/15/20 09:27 03/15/20 10:35 White Blood Count 6.8 x10^3/uL (4.0-11.0) Red Blood Count 5.37 x10^6/uL (4.30-5.70) Hemoglobin 16.0 g/dL (13.0-17.5) Hematocrit 48.6 % (39.0-53.0) Mean Corpuscular Volume 90 fL (79-100) Mean Corpuscular Hemoglobin 30 pg (25-35) Mean Corpuscular Hemoglobin Concent 33 g/dL (31-37) Red Cell Distribution Width 15.2 % (11.5-14.5) H Platelet Count 235 x10^3/uL (140-400) Neutrophils (%) (Auto) 78 % (31-73) H Lymphocytes (%) (Auto) 11 % (24-48) L Monocytes (%) (Auto) 9 % (0-9) Eosinophils (%) (Auto) 1 % (0-3) Basophils (%) (Auto) 1 % (0-3) Neutrophils # (Auto) 5.3 x10^3uL (1.8-7.7) Lymphocytes # (Auto) 0.7 x10^3/uL (1.0-4.8) L Monocytes # (Auto) 0.6 x10^3/uL (0.0-1.1) Eosinophils # (Auto) 0.1 x10^3/uL (0.0-0.7) Basophils # (Auto) 0.1 x10^3/uL (0.0-0.2) Sodium Level 141 mmol/L (136-145) Potassium Level 3.7 mmol/L (3.5-5.1) Chloride Level 103 mmol/L (98-107) Carbon Dioxide Level 28 mmol/L (21-32) Anion Gap 10 (6-14) Blood Urea Nitrogen 17 mg/dL (8-26) Creatinine 1.3 mg/dL (0.7-1.3) Estimated GFR (Cockcroft-Gault) 53.1 BUN/Creatinine Ratio 13 (6-20) Glucose Level 93 mg/dL (70-99) Calcium Level 9.2 mg/dL (8.5-10.1) Total Bilirubin 0.6 mg/dL (0.2-1.0) Aspartate Amino Transferase (AST) 24 U/L (15-37) Alanine Aminotransferase (ALT) 26 U/L (16-63) Alkaline Phosphatase 61 U/L (46-116) Total Protein 7.9 g/dL (6.4-8.2) Albumin 3.9 g/dL (3.4-5.0) Albumin/Globulin Ratio 1.0 (1.0-1.7) Coronavirus (PCR) Not detected (Not Detected) Current Medications: I have reviewed the current psychotropics carefully including drug interactions. Risk benefit ratio favors no change other than as noted in my dictated progress note. Diagnosis: Problems: (1) Impulse control disorder, unspecified (2) Anxiety disorder, unspecified (3) Dementia, vascular, with depression (4) Dementia, vascular, with delusions (5) Dementia in Alzheimer's disease with depression (6) Dementia in Alzheimer's disease with delusions (7) Dementia of the Alzheimer's type with early onset with behavioral disturbance (8) Major neurocognitive disorder LARRY LOUIS MD Mar 15, 2020 21:57
[2020-03-15] MEDS: MAGNESIUM HYDROXIDE 2,400 MG/30 ML ORAL.SUSP. PO PRN (23:09)
--- NOTE | 2020-03-16 02:52 | NUR ---
Nursing Note The patient was located in his room for his assessment and medication pass. The patient was compliant with his medication and assessment. The patient took his medication whole and was appropriate but disorganized during his assessment. The patient has a LBM date of prior to 03/08/20. PRN MOM and prune juice was given@[id number] per PRN order. The patient has been restless this HS shift and is currently awake laying in his bed.
[2020-03-16 05:54] VITALS: BP 134/73
[2020-03-16] MEDS: TAMSULOSIN 0.4 MG CAP.ER.24H. PO SCH (08:34)
[2020-03-16] MEDS: ASPIRIN CHEWABLE 81 MG TABLET. PO SCH (08:34)
[2020-03-16] MEDS: MEMANTINE 10 MG TABLET. PO SCH ×2 (08:34→21:28)
[2020-03-16] MEDS: SERTRALINE 50 MG TABLET. PO SCH (08:34)
[2020-03-16] MEDS: CHOLECALCIFEROL (VITAMIN D3) 1,000 UNIT TABLET PO SCH (08:34)
--- NOTE | 2020-03-16 09:56 | NUR ---
Patient is in locked hallway. Patient has increased confusion and agitation. Patient calm while eating and complaint with medication. Patient will be monitor for a bowel movement and will be given more milk of mag if he does not have one by dinner.
[2020-03-16 15:49] VITALS: BP 122/74
[2020-03-16] MEDS: OLANZapine 2.5 MG TABLET PO SCH (21:27)
[2020-03-16] MEDS: MIRTAZAPINE 7.5 MG TABLET. PO SCH (21:27)
[2020-03-16] MEDS: SIMVASTATIN 40 MG TABLET. PO SCH (21:28)
[2020-03-16] MEDS: traZODone 100 MG TABLET. PO SCH (21:29)
--- NOTE | 2020-03-16 21:55 | PDOC ---
Exam Note: Shravan Note: Please also refer to the separate dictated note~for this date of service dictated separately.~Patient seen individually. Discussed the patient with Nursing staff reviewed the chart.~Reviewed interim history and current functioning. Reviewed vital signs,~Labs/ Radiology~and current medications noted below. Continue current treatment with the changes noted in the dictated addendum note Assessment: Vital Signs/I&O: Vital Signs Date Time Temp Pulse Resp B/P (MAP) Pulse Ox O2 Delivery O2 Flow Rate FiO2 03/16/20 15:49 97.9 63 17 122/74 (90) 96 Room Air I & O 03/15/20 03/15/20 03/16/20 15:00 23:00 07:00 Intake Total 600 ml 340 ml Balance 600 ml 340 ml Current Medications: I have reviewed the current psychotropics carefully including drug interactions. Risk benefit ratio favors no change other than as noted in my dictated progress note. Diagnosis: Problems: (1) Impulse control disorder, unspecified (2) Anxiety disorder, unspecified (3) Dementia, vascular, with depression (4) Dementia, vascular, with delusions (5) Dementia in Alzheimer's disease with depression (6) Dementia in Alzheimer's disease with delusions (7) Dementia of the Alzheimer's type with early onset with behavioral disturbance (8) Major neurocognitive disorder LARRY LOUIS MD Mar 16, 2020 21:55
--- NOTE | 2020-03-17 00:38 | NUR ---
Nursing Note The patient was very restless early in the shift. The patient was repeatedly directed back to his room from the hallways and other patients rooms. The patient displays no comprehension when provided teaching R/T isolation. The patient was eventually placed in the quiet rossi in order to ensure proper isolation. The patient took his medication whole. The patient is currently sleeping in his room.
[2020-03-17 05:47] VITALS: BP 139/83
[2020-03-17] MEDS: CHOLECALCIFEROL (VITAMIN D3) 1,000 UNIT TABLET PO SCH (08:31)
[2020-03-17] MEDS: TAMSULOSIN 0.4 MG CAP.ER.24H. PO SCH (08:32)
[2020-03-17] MEDS: MEMANTINE 10 MG TABLET. PO SCH ×2 (08:32→21:05)
[2020-03-17] MEDS: ASPIRIN CHEWABLE 81 MG TABLET. PO SCH (08:32)
[2020-03-17] MEDS: SERTRALINE 50 MG TABLET. PO SCH (08:32)
--- NOTE | 2020-03-17 09:31 | NUR ---
Patient is in locked hallway. Patient calm while eating and complaint with medication. Patient will be monitor for a bowel movement and will be given more milk of mag if he does not have one by dinner.
[2020-03-17] MEDS: MAGNESIUM HYDROXIDE 2,400 MG/30 ML ORAL.SUSP. PO PRN (13:13)
[2020-03-17] MEDS: LORazepam 0.5 MG TABLET PO PRN (13:58)
--- NOTE | 2020-03-17 14:00 | NUR ---
Pt in quiet rossi as he refuses to wear mask. Let pt out into day room to roam and opened patio doors. Pt walked up to fence and attempted to stand on raised garden to climb fence. Pt asking to call police to come let us out. Attempting to redirect him without success. Pt returned to [facility] and given Lorazepam.
[2020-03-17 15:47] VITALS: BP 120/69
[2020-03-17] MEDS: MIRTAZAPINE 7.5 MG TABLET. PO SCH (21:05)
[2020-03-17] MEDS: OLANZapine 2.5 MG TABLET PO SCH (21:05)
[2020-03-17] MEDS: traZODone 100 MG TABLET. PO SCH (21:05)
[2020-03-17] MEDS: SIMVASTATIN 40 MG TABLET. PO SCH (21:05)
[2020-03-17] MEDS: DOCUSATE SODIUM 100 MG CAPSULE PO SCH (21:08)
--- NOTE | 2020-03-17 22:01 | PDOC ---
Exam Note: Shravan Note: Please also refer to the separate dictated note~for this date of service dictated separately.~Patient seen individually. Discussed the patient with Nursing staff reviewed the chart.~Reviewed interim history and current functioning. Reviewed vital signs,~Labs/ Radiology~and current medications noted below. Continue current treatment with the changes noted in the dictated addendum note Assessment: Vital Signs/I&O: Vital Signs Date Time Temp Pulse Resp B/P (MAP) Pulse Ox O2 Delivery O2 Flow Rate FiO2 03/17/20 20:56 98.3 95 03/17/20 15:47 90 20 120/69 (86) Room Air I & O 03/16/20 03/16/20 03/17/20 15:00 23:00 07:00 Intake Total 360 ml 240 ml 120 ml Balance 360 ml 240 ml 120 ml Current Medications: Meds: Current Medications Medications (Trade) Dose Ordered Sig/Dl Route PRN Reason Start Time Stop Time Status Last Admin Dose Admin Docusate Sodium (Colace) 100 mg BID PO 03/17/20 21:00 03/17/20 21:08 I have reviewed the current psychotropics carefully including drug interactions. Risk benefit ratio favors no change other than as noted in my dictated progress note. Diagnosis: Problems: (1) Impulse control disorder, unspecified (2) Anxiety disorder, unspecified (3) Dementia, vascular, with depression (4) Dementia, vascular, with delusions (5) Dementia in Alzheimer's disease with depression (6) Dementia in Alzheimer's disease with delusions (7) Dementia of the Alzheimer's type with early onset with behavioral disturbance (8) Major neurocognitive disorder LARRY LOUIS MD Mar 17, 2020 22:01
[2020-03-18 05:55] VITALS: BP 120/62
--- NOTE | 2020-03-18 06:59 | PDOC ---
Exam Note: Shravan Note: This note is a late entry for 03/15/2020 covers elements not covered in my initial note. Subjective: The patient was evaluated on telehealth rounds in the evening of 03/15/2020 with Jennifer nursing aid as one of the patients on the unit has tested positive for COVID-19 and unit is on a lockdown with no admission and discharges. That is the reason I am doing telehealth rounds to minimize any further spread of the infection. Nursing report with Josy SALAZAR. He slept 6 hours previous night. [facility], otherwise, he was getting agitated, does not want to stay in his room, does not want to put his mask on. Everybody needs to have a mask on the unit but he does not wear it, forgets it. He is irritable at night, banging on the doors, later better. Review of Systems: No CV, , pulmonary, eye, ENT system symptoms on review. Reliability poor. Mental Status Exam: Reasonably oriented. Insight and judgment, recent and remote memory, attention and concentration, fund of knowledge is poor consistent with his diagnoses. Laboratory Data: Reviewed. Impression: Major neurocognitive disorder Alzheimer vascular with delusion, depression, behavioral disturbance. Anxiety disorder unspecified. Impulse control disorder unspecified. Plan: Continue psychotropics from initial note. Assessment: Vital Signs/I&O: Vital Signs Date Time Temp Pulse Resp B/P (MAP) Pulse Ox O2 Delivery O2 Flow Rate FiO2 03/18/20 05:55 97.4 69 18 120/62 (81) 96 Room Air I & O 03/17/20 03/17/20 03/18/20 15:00 23:00 07:00 Intake Total 720 ml 360 ml Balance 720 ml 360 ml Current Medications: Meds: Current Medications Medications (Trade) Dose Ordered Sig/Dl Route PRN Reason Start Time Stop Time Status Last Admin Dose Admin Docusate Sodium (Colace) 100 mg BID PO 03/17/20 21:00 03/17/20 21:08 I have reviewed the current psychotropics carefully including drug interactions. Risk benefit ratio favors no change other than as noted in my dictated progress note. Diagnosis: Problems: (1) Impulse control disorder, unspecified (2) Anxiety disorder, unspecified (3) Dementia, vascular, with depression (4) Dementia, vascular, with delusions (5) Dementia in Alzheimer's disease with depression (6) Dementia in Alzheimer's disease with delusions (7) Dementia of the Alzheimer's type with early onset with behavioral disturbance (8) Major neurocognitive disorder LARRY LOUIS MD Mar 18, 2020 06:59
--- NOTE | 2020-03-18 07:14 | PDOC ---
Exam Note: Shravan Note: This note is a late entry for 03/16/2020 covers elements not covered in my initial note. Subjective: The patient was evaluated on telehealth rounds in the evening of 03/16/2020 with Caron nursing aid as one of the patients on the unit has tested positive for COVID-19 and unit is on a lockdown with no admission and discharges. That is the reason I am doing telehealth rounds to minimize any further spread of the infection. Nursing report with Cordell SALAZAR. He slept 4 hours previous night. He has been more active, walking up and down rapidly in the hallway, not wearing his mask, at times redirects. He has had some constipation, did receive milk of magnesium h.s. Review of Systems: No CV, , pulmonary, eye, ENT system symptoms on review. Reliability poor. Mental Status Exam: Oriented to himself. Insight and judgment, recent and remote memory, attention and concentration, fund of knowledge is poor consistent with his diagnoses. Laboratory Data: Reviewed. Impression: Major neurocognitive disorder Alzheimer vascular with delusion, depression, behavioral disturbance. Anxiety disorder unspecified. Impulse control disorder unspecified. Plan: No change from initial note. Assessment: Vital Signs/I&O: Vital Signs Date Time Temp Pulse Resp B/P (MAP) Pulse Ox O2 Delivery O2 Flow Rate FiO2 03/18/20 05:55 97.4 69 18 120/62 (81) 96 Room Air I & O 03/17/20 03/17/20 03/18/20 15:00 23:00 07:00 Intake Total 720 ml 360 ml Balance 720 ml 360 ml Current Medications: Meds: Current Medications Medications (Trade) Dose Ordered Sig/Dl Route PRN Reason Start Time Stop Time Status Last Admin Dose Admin Docusate Sodium (Colace) 100 mg BID PO 03/17/20 21:00 03/17/20 21:08 I have reviewed the current psychotropics carefully including drug interactions. Risk benefit ratio favors no change other than as noted in my dictated progress note. Diagnosis: Problems: (1) Impulse control disorder, unspecified (2) Anxiety disorder, unspecified (3) Dementia, vascular, with depression (4) Dementia, vascular, with delusions (5) Dementia in Alzheimer's disease with depression (6) Dementia in Alzheimer's disease with delusions (7) Dementia of the Alzheimer's type with early onset with behavioral disturbance (8) Major neurocognitive disorder LARRY LOUIS MD Mar 18, 2020 07:13
--- NOTE | 2020-03-18 07:26 | PDOC ---
Exam Note: Shravan Note: This note is a late entry for 03/17/2020 covers elements not covered in my initial note. Subjective: The patient was evaluated on telehealth rounds in the evening of 03/17/2020 with Caron nursing aid as one of the patients on the unit has tested positive for COVID-19 and unit is on a lockdown with no admission and discharges. That is the reason I am doing telehealth rounds to minimize any further spread of the infection. Nursing report with Cordell SALAZAR. He slept 5 hours previous night. He did receive Ativan p.r.n. for agitation after lunch, then calmer. Review of Systems: No CV, , pulmonary, eye, ENT system symptoms on review. Reliability poor. Mental Status Exam: Insight and judgment, recent and remote memory, attention and concentration, fund of knowledge is poor consistent with his diagnoses. Laboratory Data: Reviewed. Impression: Major neurocognitive disorder Alzheimer vascular with delusion, depression, behavioral disturbance. Anxiety disorder unspecified. Impulse control disorder unspecified. Plan: Continue rest unchanged. The patient finished his course of Macrobid for UTI. We will adjust further as clinically indicated. Assessment: Vital Signs/I&O: Vital Signs Date Time Temp Pulse Resp B/P (MAP) Pulse Ox O2 Delivery O2 Flow Rate FiO2 03/18/20 05:55 97.4 69 18 120/62 (81) 96 Room Air I & O 03/17/20 03/17/20 03/18/20 15:00 23:00 07:00 Intake Total 720 ml 360 ml Balance 720 ml 360 ml Current Medications: Meds: Current Medications Medications (Trade) Dose Ordered Sig/Dl Route PRN Reason Start Time Stop Time Status Last Admin Dose Admin Docusate Sodium (Colace) 100 mg BID PO 03/17/20 21:00 03/17/20 21:08 I have reviewed the current psychotropics carefully including drug interactions. Risk benefit ratio favors no change other than as noted in my dictated progress note. Diagnosis: Problems: (1) Impulse control disorder, unspecified (2) Anxiety disorder, unspecified (3) Dementia, vascular, with depression (4) Dementia, vascular, with delusions (5) Dementia in Alzheimer's disease with depression (6) Dementia in Alzheimer's disease with delusions (7) Dementia of the Alzheimer's type with early onset with behavioral disturbance (8) Major neurocognitive disorder LARRY LOUIS MD Mar 18, 2020 07:26
[2020-03-18] MEDS: CHOLECALCIFEROL (VITAMIN D3) 1,000 UNIT TABLET PO SCH (08:22)
[2020-03-18] MEDS: SERTRALINE 50 MG TABLET. PO SCH (08:22)
[2020-03-18] MEDS: MEMANTINE 10 MG TABLET. PO SCH ×2 (08:22→20:11)
[2020-03-18] MEDS: ASPIRIN CHEWABLE 81 MG TABLET. PO SCH (08:22)
[2020-03-18] MEDS: POLYETHYLENE GLYCOL 3350 17 GM PACKET. PO SCH (08:22)
[2020-03-18] MEDS: TAMSULOSIN 0.4 MG CAP.ER.24H. PO SCH (08:22)
[2020-03-18] MEDS: DOCUSATE SODIUM 100 MG CAPSULE PO SCH ×2 (08:22→20:11)
--- NOTE | 2020-03-18 10:11 | NUR ---
PATIENT IS LOCATED IN PT ROOM AT TIME OF ASSESSMENT AND MEDICATION ADMINISTRATION. PATIENT IS PLEASANTLY CONFUSED AND COOPERATIVE. PATIENTS VS ARE STABLE AND PT IS RESTING IN ROOM AT THIS TIME. WILL CONTINUE TO MONITOR.
[2020-03-18 16:35] VITALS: BP 116/56
--- NOTE | 2020-03-18 17:23 | NUR ---
DEIDRE attempted to contact pt son, Richie, and was not able to leave him a message. DEIDRE will attempt to contact pt son tomorrow to give him an update on pt status.
[2020-03-18] MEDS: OLANZapine 2.5 MG TABLET PO SCH (20:11)
[2020-03-18] MEDS: MIRTAZAPINE 7.5 MG TABLET. PO SCH (20:11)
[2020-03-18] MEDS: SIMVASTATIN 40 MG TABLET. PO SCH (20:11)
[2020-03-18] MEDS: traZODone 100 MG TABLET. PO SCH (20:11)
--- NOTE | 2020-03-18 23:53 | NUR ---
Nursing Note Pt confused wanders the unit refuses his masks, difficult to redirect. Takes po meds compliant with meds and assessment.
[2020-03-19 06:00] VITALS: BP 112/69
--- NOTE | 2020-03-19 07:31 | PDOC ---
Exam Note: Shravan Note: This note is a late entry for 03/18/2020 covers elements not covered in my initial note. Subjective: The patient was reviewed at treatment team meeting in the morning on telehealth rounds on 03/18/2020 including Crys, (social service staff), Nellie SALAZAR. He has been coming out of his room. He forgets to wear his mask, wanders the hallways. He is pleasant, not aggressive. Review of Systems: No CV, , pulmonary, eye, ENT system symptoms on review. Reliability poor. Mental Status Exam: Insight and judgment, recent and remote memory, attention and concentration, fund of knowledge is poor consistent with his diagnoses. Laboratory Data: Reviewed. Impression: Major neurocognitive disorder Alzheimer vascular with delusion, depression, behavioral disturbance. Anxiety disorder unspecified. Impulse control disorder unspecified. Plan: No change from initial note. Dr. Celis will be covering for me during my vacation from 03/19/2020 to 03/25/2020. Assessment: Vital Signs/I&O: Vital Signs Date Time Temp Pulse Resp B/P (MAP) Pulse Ox O2 Delivery O2 Flow Rate FiO2 03/19/20 06:00 97.3 68 16 112/69 (83) 91 03/18/20 05:55 Room Air I & O 03/18/20 03/18/20 03/19/20 15:00 23:00 07:00 Intake Total 440 ml 320 ml Balance 440 ml 320 ml Labs: Laboratory Tests Test 03/18/20 11:55 SARS-CoV-2 Antigen (Rapid) Negative (NEGATIVE) Current Medications: Meds: Current Medications Medications (Trade) Dose Ordered Sig/Dl Route PRN Reason Start Time Stop Time Status Last Admin Dose Admin Polyethylene Glycol (miraLAX) 17 gm DAILY PO 03/18/20 09:00 03/18/20 08:22 I have reviewed the current psychotropics carefully including drug interactions. Risk benefit ratio favors no change other than as noted in my dictated progress note. Diagnosis: Problems: (1) Impulse control disorder, unspecified (2) Anxiety disorder, unspecified (3) Dementia, vascular, with depression (4) Dementia, vascular, with delusions (5) Dementia in Alzheimer's disease with depression (6) Dementia in Alzheimer's disease with delusions (7) Dementia of the Alzheimer's type with early onset with behavioral disturb ance (8) Major neurocognitive disorder LARRY LOUIS MD Mar 19, 2020 07:31
[2020-03-19] MEDS: DOCUSATE SODIUM 100 MG CAPSULE PO SCH ×2 (08:18→20:09)
[2020-03-19] MEDS: ASPIRIN CHEWABLE 81 MG TABLET. PO SCH (08:18)
[2020-03-19] MEDS: POLYETHYLENE GLYCOL 3350 17 GM PACKET. PO SCH (08:18)
[2020-03-19] MEDS: CHOLECALCIFEROL (VITAMIN D3) 1,000 UNIT TABLET PO SCH (08:18)
[2020-03-19] MEDS: TAMSULOSIN 0.4 MG CAP.ER.24H. PO SCH (08:18)
[2020-03-19] MEDS: SERTRALINE 50 MG TABLET. PO SCH (08:18)
[2020-03-19] MEDS: MEMANTINE 10 MG TABLET. PO SCH ×2 (08:18→20:10)
--- NOTE | 2020-03-19 10:11 | NUR ---
Patient in his room sitting on bed. Medications given whole with prompting to drink between pills. Patient is disorganized, forgetful and restless. He has been out of his room multiple times without his mask. He is easily redirected verbally to return to his room but continues to come out d/t his poor memory. Nurse asked patient to wear mask, patient seemed unable to comprehend. No aggression noted. Patient slept well last night, 7.25 hours.
--- NOTE | 2020-03-19 12:08 | NUR ---
SW received a call from pt facility to get an update on pt discharge status. SW informed the facility that pt had a negative test; however in our weekly testing, we had a pt test Covoid positive. Therefore, no admissions in and no discharges out until April 01. SW will make sure to send updates to the facility closer to discharge for update and discharge planning purposes.
[2020-03-19] MEDS: LORazepam 0.5 MG TABLET PO PRN (13:55)
--- NOTE | 2020-03-19 13:56 | NUR ---
Patient refusing to keep his mask on and continues to go out into hallway. He stated he is angry and that he "should have retired" years ago. Verbal redirection agitated him further. PRN Ativan given per order for agitation.
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
[2020-03-19 16:15] VITALS: BP 124/76
--- NOTE | 2020-03-19 17:20 | NUR ---
Patient continues to walk in hallways with no mask and is exit seeking. Patient states that he is waiting for his ride. Patient redirected verbally by several staff members many times. Patient insists that he works here and is awaiting his ride home. Patint attempted to put the mask around his head and it was hanging off the front of his face. Mask strap broke, patient was provided with a replacement mask. Staff assisted patient with his mask. Patient is now in west hallway and is sitting in chair awaiting "his ride". He has taken his mask off again.
[2020-03-19] MEDS: traZODone 100 MG TABLET. PO SCH (20:10)
[2020-03-19] MEDS: SIMVASTATIN 40 MG TABLET. PO SCH (20:10)
[2020-03-19] MEDS: MIRTAZAPINE 7.5 MG TABLET. PO SCH (20:10)
[2020-03-19] MEDS: OLANZapine 2.5 MG TABLET PO SCH (20:10)
--- NOTE | 2020-03-19 22:05 | PN ---
DATE: 03/19/2020 SUBJECTIVE: The patient was evaluated today on telehealth rounds, also met with the staff, reviewed his current medications and the lab. Staff reports increased agitation, not able to follow directions, not sleeping well, tend to wander a lot. OBSERVATION: VITAL SIGNS: Temperature 97.3, blood pressure 112/69, pulse 68, respirations 16, O2 sat 91%. GENERAL: Slept about 7 hours last night. The patient's appetite is fair. LABORATORY DATA: The patient's lab reviewed and also reviewed his current medications, which includes olanzapine 2.5 mg daily and 2.5 mg at night, Zoloft 50 mg daily, mirtazapine 7.5 mg at night, trazodone 100 mg at night, lorazepam 0.5 mg p.r.n. daily. Staff reports no falls. ASSESSMENT: Dementia, most likely Alzheimer's, generalized anxiety disorder. PLAN: To continue with the current treatment plan. LENGTH OF STAY: 5 days. HIEU ELLIOTT MD DR: SPIKE/velia JOB#: [id number] / [id number]
--- NOTE | 2020-03-19 23:56 | NUR ---
Nursing Note Pt pleasant but very confused. In locked hallway for wandering in and out of rooms. Compliant and cooperative with meds and assessments.
[2020-03-20 06:29] VITALS: BP 124/59
[2020-03-20] MEDS: POLYETHYLENE GLYCOL 3350 17 GM PACKET. PO SCH (08:25)
[2020-03-20] MEDS: CHOLECALCIFEROL (VITAMIN D3) 1,000 UNIT TABLET PO SCH (08:25)
[2020-03-20] MEDS: ASPIRIN CHEWABLE 81 MG TABLET. PO SCH (08:25)
[2020-03-20] MEDS: MEMANTINE 10 MG TABLET. PO SCH ×2 (08:26→19:42)
[2020-03-20] MEDS: SERTRALINE 50 MG TABLET. PO SCH (08:26)
[2020-03-20] MEDS: TAMSULOSIN 0.4 MG CAP.ER.24H. PO SCH (08:26)
[2020-03-20] MEDS: DOCUSATE SODIUM 100 MG CAPSULE PO SCH ×2 (08:26→19:41)
--- NOTE | 2020-03-20 10:00 | NUR ---
Patient has been intrusive and is refusing to stay in his room and/or wear his mask. He is in the west hallway at this time. He has been kicking the wall and telling this nurse that she is not working. Patient delusional and states "my father and I built this place from the ground up". Patient slightly irritated that nurse is asking him to wear mask and sit down in the chair. He is continually asking for "help" and to get out of the hallway.
--- NOTE | 2020-03-20 10:27 | NUR ---
Patient has been attempting to walk in the hallway without mask on. Staff has reminded him to wear mask, he continually forgets. Nurse is sitting in hallway near his room to remind him to stay in his room as he is intrusive and forgets to stay in his room. (covid precautions) Patient has an occasional dry cough that is non-productive. Lung sounds are diminished, he has history of emphysema. Patient denies pain when asked and shows no s/s pain. Patient compliant with medications and took them whole with water a few at a time with much encouragement. Patient is calm. He is delusional and states that he is at work and there is too much work to do. Patient has not been aggressive this day and slept 6.75 hours last night.
[2020-03-20] MEDS: OLANZapine 2.5 MG TABLET PO SCH ×2 (15:26→19:41)
--- NOTE | 2020-03-20 15:27 | NUR ---
Patient took an afternoon nap. 1400 medication being given at this time.
[2020-03-20 16:02] VITALS: BP 144/55
--- NOTE | 2020-03-20 16:07 | NUR ---
DEIDRE faxed over updates to [facility] re: pt behaviors. DEIDRE informed facility that ELOS for pt would be April 01.
[2020-03-20] MEDS: traZODone 100 MG TABLET. PO SCH (19:41)
[2020-03-20] MEDS: SIMVASTATIN 40 MG TABLET. PO SCH (19:41)
[2020-03-20] MEDS: MIRTAZAPINE 7.5 MG TABLET. PO SCH (19:41)
--- NOTE | 2020-03-20 22:00 | PN ---
DATE: 03/20/2020 SUBJECTIVE: The patient was evaluated today by tele rounds, discussed with the staff, reviewed his current medications and lab report. OBSERVATION: VITAL SIGNS: Temperature 97.9, blood pressure 124/59, pulse 55, respiration 18, O2 sat 93%. GENERAL: Slept about 7 hours last night. Staff reports his sleep fluctuates. He continues to be restless, intrusive and also withdrawn. MEDICATIONS: The patient's current medication includes olanzapine 2.5 mg daily and 2.5 mg at night, Zoloft 50 mg daily, mirtazapine 7.5 mg at night, trazodone 100 mg at night, lorazepam 0.5 mg p.r.n. daily. The patient is not exhibiting any side effects. ASSESSMENT: 1. Dementia, most likely Alzheimer's. 2. Generalized anxiety disorder. PLAN: To continue with the treatment. The patient's Zyprexa dose is the same. LENGTH OF STAY: 5 days. HIEU ELLIOTT MD DR: SPIKE/velia JOB#: [id number] / [id number]
--- NOTE | 2020-03-20 23:19 | NUR ---
Nursing note Pt is in private rossi, is confused, attempting to break through the doors. States he needs to get out to get his work done. He states doesn't have time to mess around with females getting in the way of his progress, and that we need to get our jobs done and shut up. He is pleasant calm and cooperative to male staff.
[2020-03-21 06:36] VITALS: BP 104/58
[2020-03-21] MEDS: POLYETHYLENE GLYCOL 3350 17 GM PACKET. PO SCH (09:37)
[2020-03-21] MEDS: TAMSULOSIN 0.4 MG CAP.ER.24H. PO SCH (09:37)
[2020-03-21] MEDS: CHOLECALCIFEROL (VITAMIN D3) 1,000 UNIT TABLET PO SCH (09:37)
[2020-03-21] MEDS: MEMANTINE 10 MG TABLET. PO SCH ×2 (09:38→19:42)
[2020-03-21] MEDS: ASPIRIN CHEWABLE 81 MG TABLET. PO SCH (09:38)
[2020-03-21] MEDS: SERTRALINE 50 MG TABLET. PO SCH (09:38)
[2020-03-21] MEDS: DOCUSATE SODIUM 100 MG CAPSULE PO SCH ×2 (09:38→19:42)
[2020-03-21] MEDS: LORazepam 0.5 MG TABLET PO PRN (09:39)
--- NOTE | 2020-03-21 09:40 | NUR ---
Natalia is highly agitated. He is kicking the ramirez and poundiing on surfaces. Patient is angry stating that he and his father have work to do. He is not redirectable and is getting increasingly agitated. Patient is cursing at this nurse and very irritated. PRN ativan provided per order for agitation. Will continue to monitor. Addendum: 03/21/20 at 1117 by ELDA PAREDES RN Nurse took patient outside to "wait for his dad". after about 30 minutes patient began to look drowsy and had calmed down. Nurse walked patient into his room and assisted him into his bed. Patient is currently asleep.
--- NOTE | 2020-03-21 11:17 | NUR ---
Patient was compliant with medications. He took them crushed in a bite of pudding followed by miralax in apple juice. He was agitated at the time but willing to take his medications. Patient is delusional and believes his father is on the way here and they will work together. He also stated he and his dad built this building but was unable to say what kind of building it is. He continues to wander, refuse to wear a mask and enters other patients rooms.
[2020-03-21] MEDS: OLANZapine 2.5 MG TABLET PO SCH ×2 (13:22→19:42)
[2020-03-21 15:48] VITALS: BP 98/62
[2020-03-21] MEDS: SIMVASTATIN 40 MG TABLET. PO SCH (19:42)
[2020-03-21] MEDS: MIRTAZAPINE 7.5 MG TABLET. PO SCH (19:42)
[2020-03-21] MEDS: traZODone 100 MG TABLET. PO SCH (19:42)
--- NOTE | 2020-03-21 22:45 | NUR ---
Nursing Note: Location of Patient during Assessment: Pt wandering in the West hallway at shift change. Behaviors Mood and Affect this shift: Pt confused, disorganized, irritable at times, and delusional- looking for his dad. Medication Compliant: Compliant with medications crushed and hidden in ice cream. Assessment Compliant: Cooperative and compliant with assessment and cares. It was noted when pt was toileted prior to bed, that there was what appeared to be blood in his stool. Will pass on to the Hospitalist as well as the next shift. Response After Interventions: Pt currently resting in bed with eyes closed.
[2020-03-22 05:00] VITALS: BP 114/63
--- NOTE | 2020-03-22 09:06 | PN ---
DATE: 03/21/2020 SUBJECTIVE: The patient was evaluated today by telehealth rounds, discussed with the staff, chart reviewed. The patient's vital signs stable. The patient's appetite is poor. MEDICATIONS: The patient's current medications include olanzapine 2.5 mg daily, ____ at night, Zoloft 50 mg daily, mirtazapine 7.5 mg at night, trazodone 100 mg at night, lorazepam 0.5 mg p.r.n. daily. The patient is not showing any side effects. ASSESSMENT: Dementia, most likely Alzheimer's, and generalized anxiety disorder. PLAN: Continue with the current treatment plan. HIEU ELLIOTT MD DR: SPIKE/velia JOB#: [id number] / [id number]
--- NOTE | 2020-03-22 09:30 | NUR ---
Covid and rapid done and sent to lab.
[2020-03-22] MEDS: ASPIRIN CHEWABLE 81 MG TABLET. PO SCH (09:34)
[2020-03-22] MEDS: MEMANTINE 10 MG TABLET. PO SCH ×2 (09:34→19:41)
[2020-03-22] MEDS: TAMSULOSIN 0.4 MG CAP.ER.24H. PO SCH (09:34)
[2020-03-22] MEDS: CHOLECALCIFEROL (VITAMIN D3) 1,000 UNIT TABLET PO SCH (09:34)
[2020-03-22] MEDS: SERTRALINE 50 MG TABLET. PO SCH (09:34)
[2020-03-22] MEDS: DOCUSATE SODIUM 100 MG CAPSULE PO SCH ×2 (09:34→19:42)
[2020-03-22] MEDS: POLYETHYLENE GLYCOL 3350 17 GM PACKET. PO SCH (09:34)
--- NOTE | 2020-03-22 11:57 | NUR ---
pt is disorganized and confused. No agitation and aggression no hallucinations or delusions. He is compliant with his medications and assessment.
[2020-03-22] MEDS: OLANZapine 2.5 MG TABLET PO SCH ×2 (13:16→19:42)
--- NOTE | 2020-03-22 14:58 | NUR ---
This afternoon pt was asking about his father and stating he and his father were "going to look for something." Pt then began wandering the unit. Pt taken to the [facility] for safety as he was not able to be compliant with his face mask.
[2020-03-22 16:03] VITALS: BP 124/72
--- NOTE | 2020-03-22 16:40 | NUR ---
pt is restless, delusional-thinks he needs to help build a house. He is pacing the unit and demanding to leave. Dr. Vimal jay. New orders for zyprexa zydis 2.5mg q 4 hours prn.
[2020-03-22] MEDS: MIRTAZAPINE 7.5 MG TABLET. PO SCH (19:41)
[2020-03-22] MEDS: traZODone 100 MG TABLET. PO SCH (19:41)
[2020-03-22] MEDS: SIMVASTATIN 40 MG TABLET. PO SCH (19:42)
--- NOTE | 2020-03-22 22:00 | NUR ---
Patient is located in the [facility] on assumption of care. He is restless, disorganized, confused. Compliant with assessments and medications crushed in ice cream. No delusions voiced so far this shift. No agitation. Does not appear to be experiencing any pain or discomfort. Cooperative with HS cares and being assisted to his room to go to sleep. Patient appears to be sleeping comfortably in his room at present time.
--- NOTE | 2020-03-22 22:15 | PN ---
DATE: 03/22/2020 SUBJECTIVE: The patient was seen today, met with the staff, chart reviewed and also discussed the patient's progress, reviewed lab and his medications. OBSERVATION: VITAL SIGNS: Temperature 98.4, blood pressure 114/63, pulse 65, respirations 20, O2 sat 92%. GENERAL: Slept about 7-1/2 hours last night. The patient's appetite improved. The patient continues to have problems, wandering, confused and also disorganized thinking. He is able to walk with a walker. The patient also observed passing blood in his stools. The patient is apparently having both urine and stool culture. ASSESSMENT: 1. Dementia, most likely Alzheimer's. 2. Generalized anxiety disorder. PLAN: To continue with the treatment. LENGTH OF STAY: 5 days. HIEU ELLIOTT MD DR: SPIKE/velia JOB#: [id number] / [id number]
[2020-03-23] MEDS: MAGNESIUM HYDROXIDE 2,400 MG/30 ML ORAL.SUSP. PO PRN (03:59)
[2020-03-23 06:03] VITALS: BP 117/63
[2020-03-23 06:37] LABS: FECAL OB PT NEGATIVE (NEG)
[2020-03-23] MEDS: CHOLECALCIFEROL (VITAMIN D3) 1,000 UNIT TABLET PO SCH (07:54)
[2020-03-23] MEDS: DOCUSATE SODIUM 100 MG CAPSULE PO SCH ×2 (07:54→20:15)
[2020-03-23] MEDS: SERTRALINE 50 MG TABLET. PO SCH (07:55)
[2020-03-23] MEDS: TAMSULOSIN 0.4 MG CAP.ER.24H. PO SCH (07:55)
[2020-03-23] MEDS: MEMANTINE 10 MG TABLET. PO SCH ×2 (07:55→20:13)
[2020-03-23] MEDS: POLYETHYLENE GLYCOL 3350 17 GM PACKET. PO SCH (07:55)
[2020-03-23] MEDS: ASPIRIN CHEWABLE 81 MG TABLET. PO SCH (07:55)
[2020-03-23] MEDS: OLANZapine 2.5 MG TABLET PO SCH ×2 (13:07→20:14)
[2020-03-23 16:13] VITALS: BP 138/70
[2020-03-23] MEDS: MIRTAZAPINE 7.5 MG TABLET. PO SCH (20:13)
[2020-03-23] MEDS: traZODone 100 MG TABLET. PO SCH (20:13)
[2020-03-23] MEDS: SIMVASTATIN 40 MG TABLET. PO SCH (20:14)
--- NOTE | 2020-03-23 21:03 | NUR ---
Patient is in his room on assumption of care. He is in bed, awake. In pleasant spirits. Disorganized, forgetful, needs reminding to stay in his room. Compliant with assessments and medications crushed in pudding. No agitation. Does not appear to be experiencing any pain or discomfort. Patient appears to be sleeping at present time.
[2020-03-24 06:08] VITALS: BP 110/65
--- NOTE | 2020-03-24 08:50 | PN ---
DATE: 03/23/2020 This is the late entry SUBJECTIVE: The patient was seen on telehealth rounds, met with the staff, chart reviewed, and covering for Dr. Madison. Staff reports increased confusion, difficult to redirect. OBSERVATION: VITAL SIGNS: Temperature 97.9, blood pressure 117/63, pulse 57, respirations 20, O2 sat 92%. Slept about 7 hours last night. The patient's appetite is fair. The patient is able to walk with a walker. MEDICATIONS: The patient's current medications include olanzapine 2.5 mg q.4 hours p.r.n. and is also on olanzapine 2.5 mg at 2 p.m. and 2.5 mg at night. Also on Zoloft 50 mg at night, mirtazapine 7.5 mg at night, trazodone 100 mg at night, Namenda 10 mg b.i.d. The patient is not having any side effects to the medications. PLAN: Continue with the current treatment plan. LENGTH OF STAY: 5-7 days. HIEU ELLIOTT MD DR: SPIKE/velia JOB#: [id number] / [id number]
[2020-03-24] MEDS: DOCUSATE SODIUM 100 MG CAPSULE PO SCH ×2 (09:00→19:36)
[2020-03-24] MEDS: ASPIRIN CHEWABLE 81 MG TABLET. PO SCH (09:03)
[2020-03-24] MEDS: TAMSULOSIN 0.4 MG CAP.ER.24H. PO SCH (09:03)
[2020-03-24] MEDS: POLYETHYLENE GLYCOL 3350 17 GM PACKET. PO SCH (09:03)
[2020-03-24] MEDS: CHOLECALCIFEROL (VITAMIN D3) 1,000 UNIT TABLET PO SCH (09:03)
[2020-03-24] MEDS: MEMANTINE 10 MG TABLET. PO SCH ×2 (09:03→19:34)
[2020-03-24] MEDS: SERTRALINE 50 MG TABLET. PO SCH (09:03)
--- NOTE | 2020-03-24 11:15 | NUR ---
Pt is disorganized, confused, and is wandering around the [facility] and into others' rooms. Staff is having difficulty redirecting pt to his room. PRN zyprexa zydis given. No agitation and aggression no hallucinations or delusions noted. He is compliant with his medications crushed in ice cream. He is compliant with his assessment.
--- NOTE | 2020-03-24 12:15 | PN ---
DATE: 03/24/2020 SUBJECTIVE: The patient was evaluated by telehealth rounds, met with the staff, chart reviewed. The patient continues to be exhibiting behavior problems, disorganized thinking, wandering, difficult to redirect. Also received Zyprexa Zydis as p.r.n. last night. The patient's sleep improved slightly. OBSERVATION: VITAL SIGNS: Temperature 98.4, blood pressure 110/65, pulse 63, respirations 14, O2 sat 93%. MEDICATIONS: The patient's current medication includes olanzapine 2.5 mg q.4 hours p.r.n., olanzapine 2.5 mg b.i.d., Zoloft 50 mg at night, mirtazapine 7.5 mg at night, trazodone 100 mg at night, Namenda 10 mg b.i.d. The patient denies of any side effects to medications. The patient did not have any falls. ASSESSMENT: 1. Dementia, most likely Alzheimer's. 2. Generalized anxiety disorder. PLAN: To continue with the treatment. LENGTH OF STAY: 5-7 days. HIEU ELLIOTT MD DR: SPIKE/velia JOB#: [id number] / [id number]
[2020-03-24] MEDS: OLANZapine 2.5 MG TABLET PO SCH ×2 (14:12→19:35)
[2020-03-24 16:24] VITALS: BP 121/59
[2020-03-24 17:44] LABS: BASO % 0 % (0-3); EOS % 1 % (0-3); HEMATOCRIT 46.3 % (39.0-53.0); HEMOGLOBIN 15.1 g/dL (13.0-17.5); LYMPH # 0.7 x10^3/uL (1.0-4.8); LYMPH % 15 % (24-48); MEAN CORPUSCULAR HEMOGLOBIN 30 pg (25-35); MEAN CORPUSCULAR HGB CONC 33 g/dL (31-37); MEAN CORPUSCULAR VOLUME 92 fL (79-100); MONO # 0.7 x10^3/uL (0.0-1.1); MONO % 15 % (0-9); NEUT # 3.1 x10^3uL (1.8-7.7); NEUT % 68 % (31-73); PLATELET COUNT 162 x10^3/uL (140-400); RED BLOOD COUNT 5.05 x10^6/uL (4.30-5.70); RED CELL DISTRIBUTION WIDTH 15.4 % (11.5-14.5); WHITE BLOOD COUNT 4.5 x10^3/uL (4.0-11.0)
[2020-03-24 17:52] LABS: ALBUMIN 3.1 g/dL (3.4-5.0); ALBUMIN/GLOBULIN RATIO 0.7 (1.0-1.7); CALCIUM 8.9 mg/dL (8.5-10.1); CREATININE 1.2 mg/dL (0.7-1.3); GFR 58.3; POTASSIUM 3.8 mmol/L (3.5-5.1); TOTAL BILIRUBIN 0.2 mg/dL (0.2-1.0); TOTAL PROTEIN 7.3 g/dL (6.4-8.2)
[2020-03-24] MEDS: MIRTAZAPINE 7.5 MG TABLET. PO SCH (19:34)
[2020-03-24] MEDS: SIMVASTATIN 40 MG TABLET. PO SCH (19:35)
[2020-03-24] MEDS: traZODone 100 MG TABLET. PO SCH (19:36)
[2020-03-25 05:52] VITALS: BP 110/54
[2020-03-25] MEDS: DOCUSATE SODIUM 100 MG CAPSULE PO SCH ×2 (09:39→19:47)
[2020-03-25] MEDS: ASPIRIN CHEWABLE 81 MG TABLET. PO SCH (09:39)
[2020-03-25] MEDS: CHOLECALCIFEROL (VITAMIN D3) 1,000 UNIT TABLET PO SCH (09:40)
[2020-03-25] MEDS: MEMANTINE 10 MG TABLET. PO SCH ×2 (09:40→19:47)
[2020-03-25] MEDS: TAMSULOSIN 0.4 MG CAP.ER.24H. PO SCH (09:40)
[2020-03-25] MEDS: SERTRALINE 50 MG TABLET. PO SCH (09:40)
[2020-03-25] MEDS: POLYETHYLENE GLYCOL 3350 17 GM PACKET. PO SCH (09:40)
[2020-03-25] MEDS: OLANZapine 2.5 MG TABLET PO SCH ×2 (14:18→19:47)
[2020-03-25 16:07] VITALS: BP 129/70
[2020-03-25 18:10] VITALS: BP 149/67
--- NOTE | 2020-03-25 18:23 | NUR ---
At approximately 1810 Staff noticed that patient appears flushed and he feels warm to the touch. Vital signs obtained, BP 149/67, P 62, R 18, RA 94%, temp: 100.3 F temporal. Patient has been less active than usual. He has spent a lot of the day sleeping and is not eating very much. Patient stated he felt "sicky" when asked if he felt okay. His 1500 vital signs were WNL as were his 0500. This nurse notified household appliance installer who advised staff to obtain axiliary and oral temperatures as well. Axillary 99.9 F oral 98.7 F. Supervisor [place] advised staff to recheck temperatures in 15 minutes. at 1825 temp 99.8 F temporal, 97.4 F oral and 99.3 F axillary. Patient continues to appear flushed and states he does not feel well. Will continue to monitor.
[2020-03-25] MEDS: SIMVASTATIN 40 MG TABLET. PO SCH (19:47)
[2020-03-25] MEDS: traZODone 100 MG TABLET. PO SCH (19:48)
[2020-03-25] MEDS: MIRTAZAPINE 7.5 MG TABLET. PO SCH (19:48)
--- NOTE | 2020-03-25 19:53 | PN ---
DATE: 03/25/2020 SUBJECTIVE: The patient was seen today, met with the staff, chart reviewed. Staff reports no major behavior problems. The patient was seen today on telehealth rounds. OBSERVATION: VITAL SIGNS: Stable. The patient's appetite fairly good, ate 70% of his meals, slept about 9-1/2 hours last night. No falls. No side effects to the medications. ASSESSMENT: 1. Dementia, most likely Alzheimer's. 2. Generalized anxiety disorder. PLAN: 1. To continue his current medications. Olanzapine 2.5 mg q.4 hours p.r.n., olanzapine 2.5 mg b.i.d., Zoloft 50 mg at night, mirtazapine 7.5 mg at night, trazodone 100 mg at night, Namenda 10 mg twice a day. LENGTH OF STAY: 5-7 days. PLAN: To continue with the treatment. HIEU ELLIOTT MD DR: SPIKE/velia JOB#: [id number] / [id number]
--- NOTE | 2020-03-26 03:10 | NUR ---
Last evening pt was in room or hallway. For awhile he said he had to get out of her because he has work to do. Shortly after he went to bed and has been sleeping most of the night. Meds were taken crushed in ice cream without difficulty.
[2020-03-26 06:00] VITALS: BP 104/61
[2020-03-26] MEDS: ASPIRIN CHEWABLE 81 MG TABLET. PO SCH (08:43)
[2020-03-26] MEDS: DOCUSATE SODIUM 100 MG CAPSULE PO SCH ×2 (08:43→19:41)
[2020-03-26] MEDS: CHOLECALCIFEROL (VITAMIN D3) 1,000 UNIT TABLET PO SCH (08:43)
[2020-03-26] MEDS: SERTRALINE 50 MG TABLET. PO SCH (08:44)
[2020-03-26] MEDS: POLYETHYLENE GLYCOL 3350 17 GM PACKET. PO SCH (08:44)
[2020-03-26] MEDS: MEMANTINE 10 MG TABLET. PO SCH ×2 (08:44→19:41)
[2020-03-26] MEDS: TAMSULOSIN 0.4 MG CAP.ER.24H. PO SCH (08:44)
--- NOTE | 2020-03-26 10:33 | NUR ---
Patient was observed ambulating in the hallway today without wearing his face mask. Staff provided face mask and patient wore it at that time. He was compliant with medications given crushed in chocolate pudding. Patient has been out of bed more today than yesterday. He is calm and cooperative with redirection. He is forgetful and disorganized. Patient has shown no aggression towards staff or peers, made no threats and got 7 hours of sleep last night.
[2020-03-26] MEDS: OLANZapine 2.5 MG TABLET PO SCH ×2 (12:41→19:40)
[2020-03-26 15:58] VITALS: BP 111/70
[2020-03-26] MEDS: MIRTAZAPINE 7.5 MG TABLET. PO SCH (19:40)
[2020-03-26] MEDS: SIMVASTATIN 40 MG TABLET. PO SCH (19:41)
[2020-03-26] MEDS: traZODone 100 MG TABLET. PO SCH (19:41)
--- NOTE | 2020-03-26 22:10 | PDOC ---
Exam Note: Shravan Note: Please also refer to the separate dictated note~for this date of service dictated separately.~Patient seen individually. Discussed the patient with Nursing staff reviewed the chart.~Reviewed interim history and current functioning. Reviewed vital signs,~Labs/ Radiology~and current medications noted below. Continue current treatment with the changes noted in the dictated addendum note Assessment: Vital Signs/I&O: Vital Signs Date Time Temp Pulse Resp B/P (MAP) Pulse Ox O2 Delivery O2 Flow Rate FiO2 03/26/20 19:42 99.4 94 03/26/20 15:58 71 17 111/70 (84) 03/25/20 18:10 Room Air I & O 03/25/20 03/25/20 03/26/20 15:00 23:00 07:00 Intake Total 360 ml 300 ml Balance 360 ml 300 ml Current Medications: I have reviewed the current psychotropics carefully including drug interactions. Risk benefit ratio favors no change other than as noted in my dictated progress note. 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
--- NOTE | 2020-03-27 00:39 | NUR ---
Last evening pt sat quietly in a chair in the hallway. He has been pleasant and cooperative tonight. Meds were taken crushed in pudding. He was only able to state name and said he was born in 1957. He was cooperative with cares and has been sleeping since going to bed.
[2020-03-27 06:06] VITALS: BP 117/70
[2020-03-27] MEDS: CHOLECALCIFEROL (VITAMIN D3) 1,000 UNIT TABLET PO SCH (08:17)
[2020-03-27] MEDS: SERTRALINE 50 MG TABLET. PO SCH (08:17)
[2020-03-27] MEDS: DOCUSATE SODIUM 100 MG CAPSULE PO SCH ×2 (08:17→19:45)
[2020-03-27] MEDS: TAMSULOSIN 0.4 MG CAP.ER.24H. PO SCH (08:17)
[2020-03-27] MEDS: POLYETHYLENE GLYCOL 3350 17 GM PACKET. PO SCH (08:17)
[2020-03-27] MEDS: ASPIRIN CHEWABLE 81 MG TABLET. PO SCH (08:17)
[2020-03-27] MEDS: MEMANTINE 10 MG TABLET. PO SCH ×2 (08:17→19:45)
--- NOTE | 2020-03-27 10:19 | PDOC ---
Exam Note: Shravan Note: This note is a late entry for 03/26/2020 covers elements not covered in my initial note. Subjective: The patient was evaluated on telehealth rounds in the evening of 03/26/2020 with [facility] nursing aid. The unit is shut down due to COVID-19 exposure on the unit with no admissions and discharges for now. Dr. Celis has covered for me for the past several days since I had been on vacation. Reviewed information with Dr. Celis. Per Tricia SALAZAR, he slept 7 hours previous night. The patient remains confused, often walks into the hallway without his mask but redirects. Review of Systems: No CV, , pulmonary, eye, ENT system symptoms on review. Reliability poor. Mental Status Exam: Insight and judgment, recent and remote memory, attention and concentration, fund of knowledge is poor consistent with his diagnoses. Laboratory Data: Reviewed. Impression: Major neurocognitive disorder Alzheimer vascular with delusion, depression, behavioral disturbance. Anxiety disorder unspecified. Impulse control disorder unspecified. Plan: No change from initial note. Assessment: Vital Signs/I&O: Vital Signs Date Time Temp Pulse Resp B/P (MAP) Pulse Ox O2 Delivery O2 Flow Rate FiO2 03/27/20 06:06 98.9 62 16 117/70 (86) 92 03/25/20 18:10 Room Air I & O 03/26/20 03/26/20 03/27/20 15:00 23:00 07:00 Intake Total 480 ml 360 ml Balance 480 ml 360 ml Current Medications: I have reviewed the current psychotropics carefully including drug interactions. Risk benefit ratio favors no change other than as noted in my dictated progress note. 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
--- NOTE | 2020-03-27 10:30 | NUR ---
The patient was eating breakfast in his room at the time of assessment. He has a visible hand tremor which appears worse than last week, he is having difficulty keeping the food on the fork while eating. Patient compliant with medications taken crushed in chocolate pudding. Patient is calm and cooperative. This RN turned the heat up in patients room as he appeared cold. Patient has had no aggression and made no threats. He slept 6.75 hours last night.
[2020-03-27] MEDS: OLANZapine 2.5 MG TABLET PO SCH ×2 (12:51→19:45)
[2020-03-27 16:04] VITALS: BP 117/63
[2020-03-27] MEDS: traZODone 100 MG TABLET. PO SCH (19:45)
[2020-03-27] MEDS: SIMVASTATIN 40 MG TABLET. PO SCH (19:45)
[2020-03-27] MEDS: MIRTAZAPINE 7.5 MG TABLET. PO SCH (19:45)
--- NOTE | 2020-03-27 21:54 | PDOC ---
Exam Note: Shravan Note: Please also refer to the separate dictated note~for this date of service dictated separately.~Patient seen individually. Discussed the patient with Nursing staff reviewed the chart.~Reviewed interim history and current functioning. Reviewed vital signs,~Labs/ Radiology~and current medications noted below. Continue current treatment with the changes noted in the dictated addendum note Assessment: Vital Signs/I&O: Vital Signs Date Time Temp Pulse Resp B/P (MAP) Pulse Ox O2 Delivery O2 Flow Rate FiO2 03/27/20 19:47 98.0 98 03/27/20 16:04 59 18 117/63 (81) 03/25/20 18:10 Room Air I & O 03/26/20 03/26/20 03/27/20 15:00 23:00 07:00 Intake Total 480 ml 360 ml Balance 480 ml 360 ml Current Medications: I have reviewed the current psychotropics carefully including drug interactions. Risk benefit ratio favors no change other than as noted in my dictated progress note. 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
--- NOTE | 2020-03-28 04:19 | NUR ---
Nursing Note The patient was withdrawn to his room the majority of the time this shift. The patent took his medication whole and was pleasant but confused during interactions.
[2020-03-28 05:40] VITALS: BP 115/65
[2020-03-28] MEDS: SERTRALINE 50 MG TABLET. PO SCH (07:22)
[2020-03-28] MEDS: POLYETHYLENE GLYCOL 3350 17 GM PACKET. PO SCH (07:22)
[2020-03-28] MEDS: ASPIRIN CHEWABLE 81 MG TABLET. PO SCH (07:23)
[2020-03-28] MEDS: DOCUSATE SODIUM 100 MG CAPSULE PO SCH ×2 (07:23→19:34)
[2020-03-28] MEDS: TAMSULOSIN 0.4 MG CAP.ER.24H. PO SCH (07:23)
[2020-03-28] MEDS: CHOLECALCIFEROL (VITAMIN D3) 1,000 UNIT TABLET PO SCH (07:23)
[2020-03-28] MEDS: MEMANTINE 10 MG TABLET. PO SCH ×2 (07:26→19:34)
--- NOTE | 2020-03-28 10:50 | NUR ---
Patient in his bed with eyes closed at the time of assessment. Patient calm and cooperative with medications administered crushed in chocolate pudding. Compliant with assessment. Patient currently resting in room. No behaviors noted at this time. Will continue to monitor.
[2020-03-28] MEDS: OLANZapine 2.5 MG TABLET PO SCH (13:33)
[2020-03-28 13:35] LABS: BASO % 1 % (0-3); EOS # 0.1 x10^3/uL (0.0-0.7); EOS % 1 % (0-3); HEMATOCRIT 46.4 % (39.0-53.0); HEMOGLOBIN 15.3 g/dL (13.0-17.5); LYMPH # 0.6 x10^3/uL (1.0-4.8); LYMPH % 13 % (24-48); MEAN CORPUSCULAR HEMOGLOBIN 30 pg (25-35); MEAN CORPUSCULAR HGB CONC 33 g/dL (31-37); MEAN CORPUSCULAR VOLUME 90 fL (79-100); MONO # 0.6 x10^3/uL (0.0-1.1); MONO % 13 % (0-9); NEUT # 3.4 x10^3uL (1.8-7.7); NEUT % 72 % (31-73); PLATELET COUNT 196 x10^3/uL (140-400); RED BLOOD COUNT 5.15 x10^6/uL (4.30-5.70); WHITE BLOOD COUNT 4.8 x10^3/uL (4.0-11.0)
[2020-03-28 13:44] LABS: CALCIUM 8.6 mg/dL (8.5-10.1); GFR 71.9; POTASSIUM 3.8 mmol/L (3.5-5.1)
[2020-03-28 13:50] LABS: ALBUMIN 2.8 g/dL (3.4-5.0); ALBUMIN/GLOBULIN RATIO 0.6 (1.0-1.7); TOTAL BILIRUBIN 0.2 mg/dL (0.2-1.0); TOTAL PROTEIN 7.3 g/dL (6.4-8.2)
--- NOTE | 2020-03-28 15:07 | RAD ---
Examination: CHEST AP ONLY History: Reason: low O2 sats Comparison: None. Findings: AP portable upright frontal view of the chest was obtained. The cardiomediastinal silhouette is normal. Consolidation involving the right mid thoracic and lower lung jean baptiste identified. No pleural effusion. Left apical pleural thickening. No pneumothorax. Bony structures are unremarkable. IMPRESSION: Right lung infiltrates. Follow-up to resolution recommended. Electronically signed by: Alfonso Waldrop MD (03/28/2020 3:04 PM) [facility]
[2020-03-28 16:15] VITALS: BP 109/54
[2020-03-28] MEDS: traZODone 100 MG TABLET. PO SCH (19:34)
[2020-03-28] MEDS: MIRTAZAPINE 7.5 MG TABLET. PO SCH (19:34)
--- NOTE | 2020-03-28 21:51 | PDOC ---
Exam Note: Shravan Note: This note is a late entry for 03/27/2020 covers elements not covered in my initial note. Subjective: The patient was evaluated on telehealth rounds in the evening of 03/27/2020 with Tricia SALAZAR. The unit is shut down due to COVID-19 exposure on the unit with no admissions and discharges for now. Per Tricia SALAZAR, he slept 6-3/4 hours previous night. He has had a mild hand tremor. He remains confused, forgets to use his mask when he is out in the hallway. Review of Systems: No CV, , pulmonary, eye, ENT system symptoms on review. Reliability poor. Mental Status Exam: Insight and judgment, recent and remote memory, attention and concentration, fund of knowledge is poor consistent with his diagnoses. Verbal responses had some latency, often monosyllabic but otherwise, pleasant, smiling intermittently/ Laboratory Data: Reviewed. Impression: Major neurocognitive disorder Alzheimer vascular with delusion, depression, behavioral disturbance. Anxiety disorder unspecified. Impulse control disorder unspecified. Plan: No change from initial note. Assessment: Vital Signs/I&O: Vital Signs Date Time Temp Pulse Resp B/P (MAP) Pulse Ox O2 Delivery O2 Flow Rate FiO2 03/28/20 20:28 98.4 03/28/20 16:15 63 20 109/54 (72) 93 Room Air I & O 03/27/20 03/27/20 03/28/20 15:00 23:00 07:00 Intake Total 720 ml 360 ml Balance 720 ml 360 ml Labs: Laboratory Tests Test 03/28/20 13:06 03/28/20 18:34 White Blood Count 4.8 x10^3/uL (4.0-11.0) Red Blood Count 5.15 x10^6/uL (4.30-5.70) Hemoglobin 15.3 g/dL (13.0-17.5) Hematocrit 46.4 % (39.0-53.0) Mean Corpuscular Volume 90 fL (79-100) Mean Corpuscular Hemoglobin 30 pg (25-35) Mean Corpuscular Hemoglobin Concent 33 g/dL (31-37) Red Cell Distribution Width 15.0 % (11.5-14.5) H Platelet Count 196 x10^3/uL (140-400) Neutrophils (%) (Auto) 72 % (31-73) Lymphocytes (%) (Auto) 13 % (24-48) L Monocytes (%) (Auto) 13 % (0-9) H Eosinophils (%) (Auto) 1 % (0-3) Basophils (%) (Auto) 1 % (0-3) Neutrophils # (Auto) 3.4 x10^3uL (1.8-7.7) Lymphocytes # (Auto) 0.6 x10^3/uL (1.0-4.8) L Monocytes # (Auto) 0.6 x10^3/uL (0.0-1.1) Eosinophils # (Auto) 0.1 x10^3/uL (0.0-0.7) Basophils # (Auto) 0.0 x10^3/uL (0.0-0.2) Sodium Level 143 mmol/L (136-145) Potassium Level 3.8 mmol/L (3.5-5.1) Chloride Level 106 mmol/L (98-107) Carbon Dioxide Level 29 mmol/L (21-32) Anion Gap 8 (6-14) Blood Urea Nitrogen 22 mg/dL (8-26) Creatinine 1.0 mg/dL (0.7-1.3) Estimated GFR (Cockcroft-Gault) 71.9 BUN/Creatinine Ratio 22 (6-20) H Glucose Level 90 mg/dL (70-99) Calcium Level 8.6 mg/dL (8.5-10.1) Total Bilirubin 0.2 mg/dL (0.2-1.0) Aspartate Amino Transferase (AST) 92 U/L (15-37) H Alanine Aminotransferase (ALT) 74 U/L (16-63) H Alkaline Phosphatase 60 U/L (46-116) Ammonia < 10 mcmol/L (11-34) L Creatine Kinase 692 U/L (39-308) H Total Protein 7.3 g/dL (6.4-8.2) Albumin 2.8 g/dL (3.4-5.0) L Albumin/Globulin Ratio 0.6 (1.0-1.7) L Lactic Acid Level 1.8 mmol/L (0.4-2.0) Current Medications: I have reviewed the current psychotropics carefully including drug interactions. Risk benefit ratio favors no change other than as noted in my dictated progress note. 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
--- NOTE | 2020-03-28 21:59 | PDOC ---
Exam Note: Shravan Note: Please also refer to the separate dictated note~for this date of service dictated separately.~Patient seen individually. Discussed the patient with Nursing staff reviewed the chart.~Reviewed interim history and current functioning. Reviewed vital signs,~Labs/ Radiology~and current medications noted below. Continue current treatment with the changes noted in the dictated addendum note Assessment: Vital Signs/I&O: Vital Signs Date Time Temp Pulse Resp B/P (MAP) Pulse Ox O2 Delivery O2 Flow Rate FiO2 03/28/20 20:28 98.4 03/28/20 16:15 63 20 109/54 (72) 93 Room Air I & O 03/27/20 03/27/20 03/28/20 15:00 23:00 07:00 Intake Total 720 ml 360 ml Balance 720 ml 360 ml Labs: Laboratory Tests Test 03/28/20 13:06 03/28/20 18:34 White Blood Count 4.8 x10^3/uL (4.0-11.0) Red Blood Count 5.15 x10^6/uL (4.30-5.70) Hemoglobin 15.3 g/dL (13.0-17.5) Hematocrit 46.4 % (39.0-53.0) Mean Corpuscular Volume 90 fL (79-100) Mean Corpuscular Hemoglobin 30 pg (25-35) Mean Corpuscular Hemoglobin Concent 33 g/dL (31-37) Red Cell Distribution Width 15.0 % (11.5-14.5) H Platelet Count 196 x10^3/uL (140-400) Neutrophils (%) (Auto) 72 % (31-73) Lymphocytes (%) (Auto) 13 % (24-48) L Monocytes (%) (Auto) 13 % (0-9) H Eosinophils (%) (Auto) 1 % (0-3) Basophils (%) (Auto) 1 % (0-3) Neutrophils # (Auto) 3.4 x10^3uL (1.8-7.7) Lymphocytes # (Auto) 0.6 x10^3/uL (1.0-4.8) L Monocytes # (Auto) 0.6 x10^3/uL (0.0-1.1) Eosinophils # (Auto) 0.1 x10^3/uL (0.0-0.7) Basophils # (Auto) 0.0 x10^3/uL (0.0-0.2) Sodium Level 143 mmol/L (136-145) Potassium Level 3.8 mmol/L (3.5-5.1) Chloride Level 106 mmol/L (98-107) Carbon Dioxide Level 29 mmol/L (21-32) Anion Gap 8 (6-14) Blood Urea Nitrogen 22 mg/dL (8-26) Creatinine 1.0 mg/dL (0.7-1.3) Estimated GFR (Cockcroft-Gault) 71.9 BUN/Creatinine Ratio 22 (6-20) H Glucose Level 90 mg/dL (70-99) Calcium Level 8.6 mg/dL (8.5-10.1) Total Bilirubin 0.2 mg/dL (0.2-1.0) Aspartate Amino Transferase (AST) 92 U/L (15-37) H Alanine Aminotransferase (ALT) 74 U/L (16-63) H Alkaline Phosphatase 60 U/L (46-116) Ammonia < 10 mcmol/L (11-34) L Creatine Kinase 692 U/L (39-308) H Total Protein 7.3 g/dL (6.4-8.2) Albumin 2.8 g/dL (3.4-5.0) L Albumin/Globulin Ratio 0.6 (1.0-1.7) L Lactic Acid Level 1.8 mmol/L (0.4-2.0) Current Medications: I have reviewed the current psychotropics carefully including drug interactions. Risk benefit ratio favors no change other than as noted in my dictated progress note. 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
--- NOTE | 2020-03-28 22:43 | NUR ---
Patient is in his room on assumption of care. He is in bed, awake with his eyes closed. Disorganized, forgetful. Compliant with assessments and medications crushed in pudding. No agitation. Does not appear to be experiencing any pain or discomfort. Patient is on 2L O2 via mask, maintaining sats above 90%. He is wearing mitts, as he keeps trying to remove oxygen. Patient appears to be sleeping at present time.
[2020-03-29 06:06] VITALS: BP 117/62
[2020-03-29 06:48] LABS: ALBUMIN 2.5 g/dL (3.4-5.0); ALBUMIN/GLOBULIN RATIO 0.6 (1.0-1.7); CALCIUM 8.5 mg/dL (8.5-10.1); GFR 71.9; POTASSIUM 3.9 mmol/L (3.5-5.1); TOTAL BILIRUBIN 0.3 mg/dL (0.2-1.0); TOTAL PROTEIN 6.7 g/dL (6.4-8.2)
[2020-03-29] MEDS: POLYETHYLENE GLYCOL 3350 17 GM PACKET. PO SCH (07:35)
[2020-03-29] MEDS: DOCUSATE SODIUM 100 MG CAPSULE PO SCH (07:36)
[2020-03-29] MEDS: ASPIRIN CHEWABLE 81 MG TABLET. PO SCH (07:36)
[2020-03-29] MEDS: MEMANTINE 10 MG TABLET. PO SCH (07:36)
[2020-03-29] MEDS: SERTRALINE 50 MG TABLET. PO SCH (07:36)
[2020-03-29] MEDS: TAMSULOSIN 0.4 MG CAP.ER.24H. PO SCH (07:36)
[2020-03-29] MEDS: CHOLECALCIFEROL (VITAMIN D3) 1,000 UNIT TABLET PO SCH (07:36)
[2020-03-29] MEDS ORDERED: IOHEXOL 350 MG/ML 100 ML VIAL. IV ONE (07:45)
--- NOTE | 2020-03-29 08:24 | RAD ---
EXAM: CT Pulmonary Angiogram INDICATION: Reason: Abnormal finding chest Xray--Pls call after 8a to arrange.PT NPO / Spl. Instructions: / History: TECHNIQUE: Multi-detector row images were acquired from the thoracic inlet through the upper abdomen with the use of IV contrast. Sagittal and coronal images were acquired from the transaxial data. MIP images of the pulmonary arteries were obtained. All CT scans performed at this facility utilize dose optimization techniques as appropriate to the exam, including the following: Automated exposure control and adjustment of the mA and/or KV according to patient size (this includes techniques or standardized protocols for targeted exams where dose is indication/reason for exam). IV CONTRAST: Administered COMPARISON: None FINDINGS: Some respiratory motion artifact is present. PULMONARY ARTERIES: No pulmonary emboli are identified. CARDIOVASCULAR: Coronary calcifications. Normal heart size. No pericardial effusion. Aorta is normal caliber. MEDIASTINUM & CHIOMA: No adenopathy or masses. LUNGS: Centrilobular emphysema with groundglass consolidation in the periphery of the right upper, right middle and superior segment right lower lobes, with lesser involvement of the periphery of the left lower lobe. PLEURAL SPACE: No pleural effusions or pneumothorax. OSSEOUS & SOFT TISSUE: Chronic anterior wedge compression fracture at T10. ABDOMEN: The visualized portions of the upper abdomen are unremarkable. IMPRESSION: 1. No pulmonary emboli. 2. Emphysema and atypical pneumonia involving the right lung greater than the left. Electronically signed by: Nanci Patterson MD (03/29/2020 8:20 AM) [id number]
[2020-03-29] MEDS ORDERED: DOCU-109 PO (09:05)
[2020-03-29] MEDS ORDERED: MAG355OR12 PO (09:06)
[2020-03-29] MEDS ORDERED: MAGN24003 PO (09:07)
[2020-03-29] MEDS ORDERED: METH57CR17 TP (09:07)
[2020-03-29] MEDS ORDERED: MIRT15TA PO (09:13)
[2020-03-29] MEDS ORDERED: POLY17PO5 PO (09:13)
[2020-03-29] MEDS ORDERED: SERT50TA PO (09:14)
--- NOTE | 2020-03-29 10:03 | NUR ---
Transition Record was faxed to follow-up provider with the following elements: Reason for admission, procedures, tests, principal diagnosis, pending studies, patient instructions, 08/02 contact information for unit, phone number to obtain pending test results, plan for follow-up care, physician follow-up, advanced directive information, and medication list with dose, duration and instructions. This information was included in the following documents: History and physical, lab results, study results, progress notes, social work planning form, DC instruction form, patient visit summary, and medication reconciliation form. Date & time record faxed: 03/29/20 0480 Record faxed to: 1 [facility] Record discussed with/ report given to: Malia Stern
[2020-03-29] MEDS ORDERED: traZODone 100 MG TABLET. PO PRN (10:30)
--- NOTE | 2020-03-29 10:56 | NUR ---
DEIDRE spoke with pt nurse who reports that she called pt son to notify him that pt would transfer down due to pneumonia. DEIDRE contacted [facility] and left a message for the DON to contact SW to notify them of the same thing. SW Will try back again so that the facility is aware that he will be transferred to the medical floor for treatment and once he is cleared, he will be able to discharge back to them.
--- NOTE | 2020-03-29 11:27 | NUR ---
Spoke with son/DPOA regarding pt transfer to [facility] for pneumonia and PUI. Son informed he could call after lunch and get an update after pt was settled in. Son agreeable.
--- NOTE | 2020-03-29 22:05 | PDOC ---
Exam Note: Shravan Note: Please also refer to the separate dictated note~for this date of service dictated separately.~Patient seen individually. Discussed the patient with Nursing staff reviewed the chart.~Reviewed interim history and current functioning. Reviewed vital signs,~Labs/ Radiology~and current medications noted below. Continue current treatment with the changes noted in the dictated addendum note Assessment: Vital Signs/I&O: Vital Signs Date Time Temp Pulse Resp B/P (MAP) Pulse Ox O2 Delivery O2 Flow Rate FiO2 03/29/20 06:06 98.5 59 16 117/62 (80) 96 Simple Mask 2.0 I & O 03/28/20 03/28/20 03/29/20 15:00 23:00 07:00 Intake Total 480 ml 720 ml Balance 480 ml 720 ml Labs: Laboratory Tests Test 03/29/20 06:27 Sodium Level 140 mmol/L (136-145) Potassium Level 3.9 mmol/L (3.5-5.1) Chloride Level 106 mmol/L (98-107) Carbon Dioxide Level 27 mmol/L (21-32) Anion Gap 7 (6-14) Blood Urea Nitrogen 18 mg/dL (8-26) Creatinine 1.0 mg/dL (0.7-1.3) Estimated GFR (Cockcroft-Gault) 71.9 BUN/Creatinine Ratio 18 (6-20) Glucose Level 91 mg/dL (70-99) Calcium Level 8.5 mg/dL (8.5-10.1) Total Bilirubin 0.3 mg/dL (0.2-1.0) Aspartate Amino Transferase (AST) 89 U/L (15-37) H Alanine Aminotransferase (ALT) 71 U/L (16-63) H Alkaline Phosphatase 53 U/L (46-116) Creatine Kinase 642 U/L (39-308) H Total Protein 6.7 g/dL (6.4-8.2) Albumin 2.5 g/dL (3.4-5.0) L Albumin/Globulin Ratio 0.6 (1.0-1.7) L Current Medications: Meds: Current Medications Medications (Trade) Dose Ordered Sig/Dl Route PRN Reason Start Time Stop Time Status Last Admin Dose Admin Iohexol (Omnipaque 350 Mg/ml) 100 ml 1X ONCE IV 03/29/20 07:45 03/29/20 07:46 DC 9/11/20 07:37 I have reviewed the current psychotropics carefully including drug interactions. Risk benefit ratio favors no change other than as noted in my dictated progress note. Diagnosis: Problems: (1) Impulse control disorder, unspecified (2) Anxiety disorder, unspecified (3) Dementia, vascular, with depression (4) Dementia, vascular, with delusions (5) Dementia in Alzheimer's disease with depression (6) Dementia in Alzheimer's disease with delusions (7) Dementia of the Alzheimer's type with early onset with behavioral disturbance (8) Major neurocognitive disorder LARRY LOUIS MD Mar 29, 2020 22:05
--- NOTE | 2020-03-29 23:20 | PDOC ---
Exam Note: Shravan Note: This note is a late entry for 03/28/2020 covers elements not covered in my initial note. Subjective: The patient was evaluated on telehealth rounds in the morning of 03/28/2020 with treatment team meeting with Sana (hospital social worker), Laney SALAZAR and Jacqueline nursing aid including his current functioning. The unit is still on a lockdown due to COVID-19 exposure with no admissions and discharges. Per Laney SALAZAR in the evening, his sleeping average is 7-1/2 hours previous night. Appetite is fair. He is quite disorganized, walks into the hallway without his mask because he forgets to use the mask. He has been appearing somewhat sick and chest x-ray is positive for pneumonia. We will defer to Dr. Phoenix. Additionally, his CK was elevated. We will stop the Lipitor and Zyprexa as a consequence of this per Dr. Phoenix and given his sedation, tiredness, withdrawal we will also stop the Remeron 7.5 mg h.s. Review of Systems: Positive for being tired, some difficulty with breathing. No CV, , eye, ENT system symptoms on review. Reliability poor. Mental Status Exam: The patient was quite withdrawn, somewhat more tired. Insight and judgment, recent and remote memory, attention and concentration, fund of knowledge is poor consistent with his diagnoses. No suicidal or homicidal ideation. Laboratory Data: Reviewed. Impression: Major neurocognitive disorder Alzheimer vascular with delusion, depression, behavioral disturbance. Anxiety disorder unspecified. Impulse control disorder unspecified. Plan: No change from initial note. We will defer medical management to Dr. Sona quintanilla. We will go ahead and stop the Remeron given his sedation. May have to stop the trazodone as well. Continue rest unchanged. Assessment: Vital Signs/I&O: Vital Signs Date Time Temp Pulse Resp B/P (MAP) Pulse Ox O2 Delivery O2 Flow Rate FiO2 03/29/20 06:06 98.5 59 16 117/62 (80) 96 Simple Mask 2.0 I & O 03/28/20 03/28/20 03/29/20 15:00 23:00 07:00 Intake Total 480 ml 720 ml Balance 480 ml 720 ml Labs: Laboratory Tests Test 03/29/20 06:27 Sodium Level 140 mmol/L (136-145) Potassium Level 3.9 mmol/L (3.5-5.1) Chloride Level 106 mmol/L (98-107) Carbon Dioxide Level 27 mmol/L (21-32) Anion Gap 7 (6-14) Blood Urea Nitrogen 18 mg/dL (8-26) Creatinine 1.0 mg/dL (0.7-1.3) Estimated GFR (Cockcroft-Gault) 71.9 BUN/Creatinine Ratio 18 (6-20) Glucose Level 91 mg/dL (70-99) Calcium Level 8.5 mg/dL (8.5-10.1) Total Bilirubin 0.3 mg/dL (0.2-1.0) Aspartate Amino Transferase (AST) 89 U/L (15-37) H Alanine Aminotransferase (ALT) 71 U/L (16-63) H Alkaline Phosphatase 53 U/L (46-116) Creatine Kinase 642 U/L (39-308) H Total Protein 6.7 g/dL (6.4-8.2) Albumin 2.5 g/dL (3.4-5.0) L Albumin/Globulin Ratio 0.6 (1.0-1.7) L Current Medications: Meds: Current Medications Medications (Trade) Dose Ordered Sig/Dl Route PRN Reason Start Time Stop Time Status Last Admin Dose Admin Iohexol (Omnipaque 350 Mg/ml) 100 ml 1X ONCE IV 03/29/20 07:45 03/29/20 07:46 DC 03/29/20 07:37 I have reviewed the current psychotropics carefully including drug interactions. Risk benefit ratio favors no change other than as noted in my dictated progress note. Diagnosis: Problems: (1) Impulse control disorder, unspecified (2) Anxiety disorder, unspecified (3) Dementia, vascular, with depression (4) Dementia, vascular, with delusions (5) Dementia in Alzheimer's disease with depression (6) Dementia in Alzheimer's disease with delusions (7) Dementia of the Alzheimer's type with early onset with behavioral disturbance (8) Major neurocognitive disorder LARRY LOUIS MD Mar 29, 2020 23:20
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
== END 2020-03-29 11:16 | disposition short-term general hospital (02) | DRG 56 ==
LOC: GEROPSY 19:30
PROVIDERS: ADMIT Psychiatry & Neurology Psychiatry; ATTEND Psychiatry & Neurology Psychiatry
DX: G30.9 Alzheimer's disease, unspecified (principal); J12.89 Other viral pneumonia; U07.1 COVID-19; F01.51 Vascular dementia, unspecified severity, with behavioral disturbance; F02.81 Dementia in other diseases classified elsewhere, unspecified severity, with behavioral disturbance; F05 Delirium due to known physiological condition; I25.10 Atherosclerotic heart disease of native coronary artery without angina pectoris; E78.5 Hyperlipidemia, unspecified; F41.8 Other specified anxiety disorders; J43.9 Emphysema, unspecified; Z20.828 Contact with and (suspected) exposure to other viral communicable diseases; Z66 Do not resuscitate; F63.9 Impulse disorder, unspecified; M19.90 Unspecified osteoarthritis, unspecified site; F41.1 Generalized anxiety disorder; G47.00 Insomnia, unspecified; Z79.899 Other long term (current) drug therapy; Z85.46 Personal history of malignant neoplasm of prostate
CPT/HCPCS: 36415; 71045; 71275; 80053; 80061; 82140; 82274; 82306; 82550; 82607; 83036; 83540; 83550; 83605; 83735; 84145; 84436; 84443; 84480; 85025; 86592; 87086; 87426; Q9967; 97116; 99285-25; U0003-CS

== ENCOUNTER 2020-03-29 11:24 | Inpatient (IN) | payer MEDICARE, OTHER ==
[~2020-03-29] VITALS: Ht 172.7 cm; Wt 72.0 kg
[~2020-03-29 11:24] MED LIST: ACET325T21 PO; ASPI-630 PO; DOCU-109 PO; ESCITALOPRAM OX10 MG PO; LORA0.5T21 PO; MAG355OR12 PO; MAGN24003 PO; MEMA10TA PO; METH57CR17 TP; MIRT15TA PO; NITR100C63 PO; OLAN2.5T3 PO; OLAN5TAB3 PO; POLY17PO5 PO; SERT50TA PO; SIMV40TA18 PO; TAMS0.4C97 PO; TRAZ-125 PO; [UNRECOGNIZED DRUG - CODE] PO; vitamin d3 PO
[2020-03-29 11:45] VITALS: BP 101/56
[2020-03-29] MEDS: IV NORMAL SALINE 1,000ML 1,000 ML IV SCH (11:45)
[2020-03-29] MEDS ORDERED: PIP/TAZO PER PHARMACY MC PRN (11:45)
[2020-03-29] MEDS: methylPREDNISolone SOD SUCC PF 40 MG/ML VIAL. IV SCH ×2 (12:23→22:52)
[2020-03-29] MEDS: PIPERACILLIN/TAZOBACTAM 4.5 GM in IV NORMAL SALINE 50ML 50 ML IV SCH ×2 (12:26→17:03)
[2020-03-29] MEDS ORDERED: VANCOMYCIN 1.75 GM in IV NORMAL SALINE 500ML 500 ML IV ONE (13:00)
[2020-03-29] MEDS ORDERED: VANCOMYCIN 1 GM in IV NORMAL SALINE 250ML 250 ML IV SCH (14:30)
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
--- NOTE | 2020-03-29 15:24 | NUR ---
DEIDRE received a call from pt son Richie, who wanted to clarify a few things re: pt case. Richie questioned if our unit has had Covoid before and DEIDRE was able to inform pt son that this was the 3rd time the unit has had Covoid and has gone through a quarantine. DEIDRE explained that on a "normal" day, pt would have multiple activities offered to him. When quarantine started, activities were lessened as they were not able to be offered within a group setting; as well as the expectation to keep people in their rooms as much as possible to decrease potential exposure. DEIDRE let Richie know that Arnol was sporadic. There were times that he stayed in his room and other times that he wanted to roam the unit. In walking around the unit, staff had to be on him to ensure he was wearing his mask because he did not wish to and was constantly found taking the mask off. Pt son questioned if pt had Covoid. DEIDRE informed pt that at this time, the only thing that can be relayed for sure is the pneumonia based of his chest x-ray. Pt was swabbed yesterday for Covoid and those test have not returned. Once pt results come back, DEIDRE will be able to inform Richie. DEIDRE and Richie discussed the plan of action which included having pt started on antibiotics and getting the test back. Once it shows that pt is negative and the antibiotics have shown improvement, DEIDRE will look at getting pt transferred back to [facility]. Richie questioned pt behaviors and DEIDRE informed him that pt did not have any aggression or threatening behaviors. He was at time agitated but able to be redirected. His greatest agitation had to deal with the mask, as he was asked to constantly put it on while wearing it on the unit. DEIDRE will follow up with Richie and Conor next week on pt progression.
[2020-03-29] MEDS: VANCOMYCIN PER PHARMACY MC PRN (15:31)
[2020-03-29 15:32] VITALS: BP 114/64
--- NOTE | 2020-03-29 15:32 | NUR ---
Pharmacy Vancomycin Dosing Note S:Consulted to monitor and dose vancomycin started . O:NIKOLAS HUGHES is a 79 year old M with HCAP. Height: 6 feet, 0 inches Weight: 67 kg Dosing Weight: Actual Other Antibiotics: ZOSYN 4.5MG IV Q6H LABS: Last BUN: 18 Last Creatinine: 1 Creatinine Clearance: 55.8 Last WBC: 4.8 Last Procalcitonin: Tmax (past 24 hours): Last dose given 03/29/20 at 1430 Vancomycin Dosing: Loading Dose: 1750 mg x1 Dosing Weight: Actual Target Trough: 15-20 A: Based on: Possible HCAP, start pt on 1g q24h and reevaluate based on trough before 3rd dose. P: 1. Begin Vancomycin 1000 mg IV q24h 2. Follow up Trough level on 03/31/20 at 1400 3. Pharmacy will continue to monitor, follow and adjust therapy as needed. TARA ANDERSON, 03/29/20 [id number]
[2020-03-29] MEDS ORDERED: MAGNESIUM HYDROXIDE 2,400 MG/30 ML ORAL.SUSP. PO PRN (16:30)
[2020-03-29] MEDS ORDERED: MAG HYDROX/AL HYDROX/SIMETH 30 ML ORAL.SUSP PO PRN (16:30)
[2020-03-29] MEDS ORDERED: METHYL SALICYLATE/MENTHOL TOPICAL OINTMENT 57GM TUBE. TP PRN (17:00)
[2020-03-29] MEDS: ACETAMINOPHEN 325 MG TABLET PO PRN (17:03)
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
--- NOTE | 2020-03-29 18:17 | NUR ---
THIS RN RECEIVED PHONE CALL FROM [facility] BILLY RN REPORTED THAT PATIENT HAD COVID POSITIVE RESULT. NURSING DIRECTOR OF PATIENT CARE NOTIFIED.
[2020-03-29 18:58] VITALS: BP 110/50
[2020-03-29] MEDS: DOCUSATE SODIUM 100 MG CAPSULE PO SCH (22:52)
[2020-03-29] MEDS: MEMANTINE 10 MG TABLET. PO SCH (22:52)
[2020-03-29 23:04] VITALS: BP 125/68
[2020-03-30] MEDS: PIPERACILLIN/TAZOBACTAM 4.5 GM in IV NORMAL SALINE 50ML 50 ML IV SCH ×4 (00:53→18:50)
[2020-03-30] MEDS: IV NORMAL SALINE 1,000ML 1,000 ML IV SCH ×3 (02:00→23:37)
[2020-03-30 06:23] VITALS: BP 124/50
[2020-03-30] MEDS: methylPREDNISolone SOD SUCC PF 40 MG/ML VIAL. IV SCH ×3 (06:43→22:08)
[2020-03-30] MEDS: TAMSULOSIN 0.4 MG CAP.ER.24H. PO SCH (09:33)
[2020-03-30] MEDS: POLYETHYLENE GLYCOL 3350 17 GM PACKET. PO SCH (09:33)
[2020-03-30] MEDS: ASPIRIN CHEWABLE 81 MG TABLET. PO SCH (09:33)
[2020-03-30] MEDS: MEMANTINE 10 MG TABLET. PO SCH ×2 (09:33→22:08)
[2020-03-30] MEDS: CHOLECALCIFEROL (VITAMIN D3) 1,000 UNIT TABLET PO SCH (09:33)
[2020-03-30] MEDS: DOCUSATE SODIUM 100 MG CAPSULE PO SCH ×2 (09:33→22:08)
[2020-03-30] MEDS: SERTRALINE 50 MG TABLET. PO SCH (09:33)
[2020-03-30 10:56] VITALS: BP 107/59
[2020-03-30 12:14] LABS: HEMATOCRIT 40.4 % (39.0-53.0); HEMOGLOBIN 13.2 g/dL (13.0-17.5); RED BLOOD COUNT 4.5 x10^6/uL (4.30-5.70)
[2020-03-30 12:37] LABS: ALBUMIN 2.2 g/dL (3.4-5.0); ALBUMIN/GLOBULIN RATIO 0.6 (1.0-1.7); C REACTIVE PROTEIN 67.3 mg/L (0-3.3); CALCIUM 8.5 mg/dL (8.5-10.1); GFR 71.9; POTASSIUM 3.7 mmol/L (3.5-5.1); TOTAL BILIRUBIN 0.2 mg/dL (0.2-1.0); TOTAL PROTEIN 6.2 g/dL (6.4-8.2)
[2020-03-30] MEDS ORDERED: NORMAL SALINE IV ONE ×2 (14:00→16:00)
[2020-03-30] MEDS ORDERED: [UNRECOGNIZED DRUG - OTHER] IV ONE ×2 (14:00→16:00)
[2020-03-30] MEDS: ENOXAPARIN 40 MG/0.4 ML SYRINGE. SQ SCH (14:05)
[2020-03-30] MEDS ORDERED: VANCOMYCIN 1 GM in IV NORMAL SALINE 250ML 250 ML IV SCH (14:30)
[2020-03-30 14:56] VITALS: BP 112/62
[2020-03-30 19:00] VITALS: BP 117/70
[2020-03-30] MEDS: LACTOBACILLUS RHAMNOSUS GG 1 CAPSULE. PO SCH (22:08)
[2020-03-30] MEDS: ACETAMINOPHEN 325 MG TABLET PO PRN (22:08)
[2020-03-30 23:30] VITALS: BP 115/65
--- NOTE | 2020-03-31 01:38 | PN ---
DATE: 03/30/2020 SUBJECTIVE: The patient was transferred yesterday from [facility] on account of worsening weakness, hypoxia as well as low-grade fever. CT scan of the chest showed that the patient has central lobular emphysema with ground glass consolidation in the periphery of the right upper and middle and superior segment of the right lower lobe and to a lesser extent involvement of the periphery of the left lower lobe. There is no pleural effusion or pneumothorax. He was admitted with possible COVID-19 pneumonia versus atypical pneumonia and he was started on 2 liters of oxygen by nasal cannula. On examining him today, he looked well and was clearly in no apparent distress. Nursing staff stated that he has episodes of marked bradycardia, especially at nighttime with a heart rate that drops down to 43. PHYSICAL EXAMINATION: GENERAL: On examining him, he looked well and was clearly in no apparent respiratory distress. No pallor, jaundice, cyanosis or thyromegaly. No jugular venous distention. No lower limb edema. VITAL SIGNS: His heart rate was 47, blood pressure was 107/59, temperature was 97, respiratory rate was 18 and oxygen saturation was 94% on 2 liters of oxygen. HEAD, EYES, EARS, NOSE AND THROAT: Normocephalic, atraumatic. NECK: Supple. HEART: Showed normal first and second heart sounds. No gallop or murmur. CHEST: Clear to auscultation. No crepitation or rhonchi. ABDOMEN: Distended, soft, nontender. NEUROLOGIC: He is profoundly demented without any obvious lateralizing sign. His intake and output are incompletely recorded. LABORATORY DATA: His lab work as of this morning showed a white cell count 12,000, hemoglobin 13, hematocrit 40, MCV 90 and platelet count of 192,000. His serum sodium was 142, potassium 3.7, chloride 110, bicarbonate 19, anion gap of 13, BUN of 28, creatinine 1, estimated GFR was 72 mL per minute, his glucose was 126, calcium was 8.5. Total bilirubin, AST, ALT, alkaline phosphatase were normal. Total protein was 6.2, albumin 2.2, ____ mL per minute. His D-dimer was 2.78. ASSESSMENT: This is an 79-year-old male patient who was admitted with: 1. Possible COVID-19 pneumonia versus atypical pneumonia. 2. Acute hypoxic respiratory failure. OTHER MEDICAL PROBLEMS: Include: A. Central demyelination of the corpus callosum. B. Emphysema. C. Dysphagia. D. Prostate cancer. E. Coronary artery disease. F. Senile macular degeneration. The patient is already on IV antibiotic in the form of vancomycin as well as Zosyn. He is on methylprednisolone 40 mg IV q. 8 hourly. We will consult the pharmacy. I will start him on Lovenox 40 mg subQ once a day and consult the pharmacy regarding treatment with remdesivir and/or convalescent plasma. CODY FLEMING MD DR: SHAKILA/velia JOB#: [id number] / [id number]
[2020-03-31] MEDS: IV NORMAL SALINE 1,000ML 1,000 ML IV SCH ×2 (03:45→13:35)
--- NOTE | 2020-03-31 04:50 | NUR ---
Pt has slept very little this night. He frequently takes his nasal cannula off and places it in his mouth or on the bed. Pt does not roll side to side well during bed changes. He will roll on his back with encouragement. While pt is sleeping heart rate fluctuates between 28-35 bpm; Sinus rhythm with PACs noted occasionally. Dr. Phoenix notified of bradycardia. No new orders given. Will continue to monitor.
[2020-03-31 05:50] VITALS: BP 115/65
[2020-03-31] MEDS: methylPREDNISolone SOD SUCC PF 40 MG/ML VIAL. IV SCH ×3 (06:00→21:05)
[2020-03-31] MEDS: PIPERACILLIN/TAZOBACTAM 4.5 GM in IV NORMAL SALINE 50ML 50 ML IV SCH ×5 (06:00→23:18)
[2020-03-31] MEDS: SERTRALINE 50 MG TABLET. PO SCH (08:19)
[2020-03-31] MEDS: CHOLECALCIFEROL (VITAMIN D3) 1,000 UNIT TABLET PO SCH (08:19)
[2020-03-31] MEDS: LACTOBACILLUS RHAMNOSUS GG 1 CAPSULE. PO SCH ×2 (08:19→21:05)
[2020-03-31] MEDS: POLYETHYLENE GLYCOL 3350 17 GM PACKET. PO SCH (08:19)
[2020-03-31] MEDS: ASPIRIN CHEWABLE 81 MG TABLET. PO SCH (08:19)
[2020-03-31] MEDS: MEMANTINE 10 MG TABLET. PO SCH ×2 (08:19→21:05)
[2020-03-31] MEDS: DOCUSATE SODIUM 100 MG CAPSULE PO SCH ×2 (08:19→21:04)
[2020-03-31] MEDS: TAMSULOSIN 0.4 MG CAP.ER.24H. PO SCH (08:19)
[2020-03-31] MEDS: LORazepam 0.5 MG TABLET PO PRN (08:26)
[2020-03-31 10:06] VITALS: BP 126/67
[2020-03-31] MEDS ORDERED: ESCI5SOL9 PO (13:07)
[2020-03-31] MEDS: ENOXAPARIN 40 MG/0.4 ML SYRINGE. SQ SCH (13:34)
[2020-03-31] MEDS: VANCOMYCIN 1.25 GM in IV NORMAL SALINE 250ML 250 ML IV SCH (14:57)
[2020-03-31 15:13] VITALS: BP 119/52
[2020-03-31] MEDS: VANCOMYCIN PER PHARMACY MC PRN (15:19)
--- NOTE | 2020-03-31 15:22 | NUR ---
Pharmacy Vancomycin Dosing Note S:Consulted to monitor and dose vancomycin started . O:NIKOLAS HUGHES is a 79 year old M with Pneumonia, . Height: 5 feet, 8 inches Weight: 72.0 kg [place] Body Weight: 68.40 Adjusted Body Weight: 69.84 Dosing Weight: Actual Other Antibiotics: ZOSYN 4.5GM Q6HRS LABS: Last BUN: 28 Last Creatinine: 1 Creatinine Clearance: 55.8 Last WBC: 12 Last Procalcitonin: Tmax (past 24 hours): Microbiology: I/O: Drug Levels: Last Trough level: 5.1 on 03/31/20 at 1400 Last dose given 03/30/20 at 1406 Vancomycin Dosing: Loading Dose: 1750 mg x1 Dosing Weight: Actual Target Trough: 15-20 A: Based on: P: 1. Change to Vancomycin 1250 mg IV q12h from 1gram q24h 2. Follow up Trough level on 04/01/20 at 1430 3. Pharmacy will continue to monitor, follow and adjust therapy as needed. HALEY JONES [facility], 03/31/20 3653
[2020-03-31] MEDS: NORMAL SALINE IV SCH (16:48)
[2020-03-31] MEDS: [UNRECOGNIZED DRUG - OTHER] IV SCH (16:48)
[2020-03-31 19:33] VITALS: BP 111/82
--- NOTE | 2020-03-31 20:18 | PN ---
DATE: 03/31/2020 SUBJECTIVE: The patient is an 79-year-old male patient transferred from [facility] with suspected coronavirus pneumonia. While there, his liver enzymes with CK was elevated and he was concerned that he might have side effects from either atorvastatin and/or possible side effect of olanzapine and therefore, it was discontinued and although he was extremely lethargic yesterday; today, he was extremely restless, agitated, does not keep his oxygen on and basically more awake and combative. On examining him, he has also episodes of severe sinus bradycardia. In fact, his heart rate last night went down to 24 according to nursing staff; however, he remained hemodynamically stable. OBJECTIVE: GENERAL: When I examined him today, he looked pale, jaundiced, cyanosed. No lymphadenopathy or thyromegaly. No jugular venous distention. No limb edema. VITAL SIGNS: His heart rate was 48, blood pressure was 126/67, temperature 98.6, respiratory rate 22, and oxygen saturation was 95% on 2.5 liters of oxygen. The rest of clinical exam is stable. His intake and output are incompletely recorded. ASSESSMENT: This is an 79-year-old male patient who was admitted with: 1. Possible COVID-19 pneumonia versus atypical pneumonia. 2. Hypoxic respiratory failure. 3. Other medical problems include: A. Central demyelination of the corpus callosum. B. Emphysema. C. Dysphagia. D. Prostate cancer. E. Coronary artery disease. F. Senile macular degeneration. PLAN: To continue with IV antibiotic in the form of vancomycin as well as Zosyn. Continue with steroids. He did receive remdesivir last night. Continue with Lovenox. I did resume his Zyprexa tonight and hopefully ____. CODY FLEMING MD DR: SHAKILA/velia JOB#: [id number] / [id number]
[2020-03-31] MEDS: OLANZapine 5 MG TABLET PO SCH (21:05)
[2020-03-31] MEDS: traZODone 100 MG TABLET. PO PRN (21:05)
[2020-03-31 23:04] VITALS: BP 133/71
[2020-04-01] MEDS: VANCOMYCIN 1.25 GM in IV NORMAL SALINE 250ML 250 ML IV SCH ×2 (02:26→15:47)
[2020-04-01] MEDS: IV NORMAL SALINE 1,000ML 1,000 ML IV SCH ×3 (05:26→17:28)
[2020-04-01] MEDS: methylPREDNISolone SOD SUCC PF 40 MG/ML VIAL. IV SCH ×3 (05:26→21:55)
[2020-04-01] MEDS: PIPERACILLIN/TAZOBACTAM 4.5 GM in IV NORMAL SALINE 50ML 50 ML IV SCH ×3 (05:32→19:32)
[2020-04-01 07:49] VITALS: BP 106/65
[2020-04-01] MEDS: LORazepam 0.5 MG TABLET PO SCH (07:57)
[2020-04-01] MEDS: MEMANTINE 10 MG TABLET. PO SCH ×2 (07:57→20:04)
[2020-04-01] MEDS: TAMSULOSIN 0.4 MG CAP.ER.24H. PO SCH (07:57)
[2020-04-01] MEDS: ASPIRIN CHEWABLE 81 MG TABLET. PO SCH (07:58)
[2020-04-01] MEDS: LACTOBACILLUS RHAMNOSUS GG 1 CAPSULE. PO SCH ×2 (07:58→20:04)
[2020-04-01] MEDS: OLANZapine 2.5 MG TABLET PO SCH (07:58)
[2020-04-01] MEDS: CHOLECALCIFEROL (VITAMIN D3) 1,000 UNIT TABLET PO SCH (07:58)
[2020-04-01] MEDS: SERTRALINE 50 MG TABLET. PO SCH (07:58)
[2020-04-01] MEDS: CITALOPRAM 20 MG TABLET. PO SCH (07:59)
[2020-04-01] MEDS: POLYETHYLENE GLYCOL 3350 17 GM PACKET. PO SCH (09:00)
[2020-04-01] MEDS: DOCUSATE SODIUM 100 MG CAPSULE PO SCH ×2 (09:00→20:04)
--- NOTE | 2020-04-01 09:46 | NUR ---
IP: patient COVID positive, requires contact and airborne precautions.
[2020-04-01 12:46] VITALS: BP 117/87
[2020-04-01] MEDS: ENOXAPARIN 40 MG/0.4 ML SYRINGE. SQ SCH (13:41)
[2020-04-01] MEDS: LORazepam 0.5 MG TABLET PO PRN (13:45)
[2020-04-01 14:51] LABS: VANC TR 12.8 mcg/mL (10.0-20.0)
[2020-04-01 15:00] VITALS: BP 129/78
[2020-04-01] MEDS: NORMAL SALINE IV SCH (17:05)
[2020-04-01] MEDS: [UNRECOGNIZED DRUG - OTHER] IV SCH (17:05)
[2020-04-01 19:15] VITALS: BP 142/72
[2020-04-01] MEDS: traZODone 100 MG TABLET. PO PRN (20:04)
[2020-04-01] MEDS: OLANZapine 5 MG TABLET PO SCH (20:04)
--- NOTE | 2020-04-01 22:04 | PN ---
DATE: 04/01/2020 SUBJECTIVE: The patient is sitting comfortably in his chair, eating his dinner. He is profoundly demented and just knows occasional words, he seemed to be a little bit anxious and restless, but does not seem to be in any respiratory distress. PHYSICAL EXAMINATION: GENERAL: When I examined him, he looked well and was clearly in no apparent respiratory distress. No pallor, jaundice, cyanosis or thyromegaly. No jugular venous distention. No limb edema. VITAL SIGNS: Her heart rate was 50, blood pressure was 129/78, temperature 97, respiratory rate was 24, and oxygen saturation was 95% on 3 liters of oxygen. HEENT: Showed normocephalic, atraumatic. NECK: Supple. HEART: Showed normal first and second heart sounds. No gallop, rub or murmur. CHEST: Showed central trachea, equal bilateral expansion, air entry, vesicular breath sounds with very few crepitations posteriorly. I could not appreciate any rhonchi. ABDOMEN: Distended, soft, nontender. NEUROLOGIC: He was profoundly demented, but without any obvious lateralizing sign. His intake over the last 24 hours was 2000, no output was recorded. LABORATORY DATA: His most recent lab work showed a white cell count 12,000, hemoglobin 13, hematocrit 40, MCV 90 and platelet count of 192,000. His chemistry showed a serum sodium 142, potassium 3.7, chloride 110, bicarbonate 19, anion gap of 13, BUN 28, creatinine 1, estimated GFR was 72 mL per minute. His glucose was 126, calcium was 8.5. Total bilirubin, AST, ALT, alkaline phosphatase were normal. Total protein was 6.2, albumin 2.2. ASSESSMENT: 1. This is an 79-year-old male patient who was admitted with possible COVID-19 pneumonia versus atypical pneumonia. 2. Acute hypoxic respiratory failure. A. Other medical problems include central demyelination of the corpus callosum. B. Emphysema. C. Dysphagia. D. Prostate cancer. E. Coronary artery disease. F. Senile macular degeneration. PLAN: To continue with IV antibiotic. Continue with Solu-Medrol. His coronavirus by PCR was detectable on 03/28/2020 and he did receive remdesivir. Meanwhile, we will continue with IV steroids, continue with Lovenox. For his restlessness, will continue the Zyprexa. CODY FLEMING MD DR: Venkat JOB#: [id number] / [id number]
[2020-04-02] MEDS: IV NORMAL SALINE 1,000ML 1,000 ML IV SCH ×2 (00:33→15:45)
[2020-04-02] MEDS: PIPERACILLIN/TAZOBACTAM 4.5 GM in IV NORMAL SALINE 50ML 50 ML IV SCH ×5 (00:33→23:50)
[2020-04-02] MEDS: VANCOMYCIN 1.25 GM in IV NORMAL SALINE 250ML 250 ML IV SCH (02:42)
[2020-04-02] MEDS: methylPREDNISolone SOD SUCC PF 40 MG/ML VIAL. IV SCH ×3 (05:46→20:24)
[2020-04-02 05:50] VITALS: BP 147/71
[2020-04-02 06:08] LABS: HEMATOCRIT 38.7 % (39.0-53.0); HEMOGLOBIN 12.7 g/dL (13.0-17.5); RED BLOOD COUNT 4.31 x10^6/uL (4.30-5.70); RED CELL DISTRIBUTION WIDTH 15.1 % (11.5-14.5); WHITE BLOOD COUNT 9.3 x10^3/uL (4.0-11.0)
[2020-04-02 06:29] LABS: ALBUMIN 2.1 g/dL (3.4-5.0); ALBUMIN/GLOBULIN RATIO 0.6 (1.0-1.7); CALCIUM 7.6 mg/dL (8.5-10.1); GFR 71.9; POTASSIUM 3.9 mmol/L (3.5-5.1); TOTAL BILIRUBIN 0.3 mg/dL (0.2-1.0); TOTAL PROTEIN 5.6 g/dL (6.4-8.2)
[2020-04-02 06:52] LABS: DIRECT BILIRUBIN 0.2 mg/dL (0.0-0.2)
[2020-04-02] MEDS: ACETAMINOPHEN 325 MG TABLET PO PRN ×2 (07:10→20:24)
[2020-04-02] MEDS: LORazepam 0.5 MG TABLET PO PRN (07:10)
[2020-04-02] MEDS: VANCOMYCIN PER PHARMACY MC PRN (07:20)
--- NOTE | 2020-04-02 07:20 | NUR ---
Pharmacy Vancomycin Dosing Note S:Consulted to monitor and dose vancomycin started . O:NIKOLAS HUGHES is a 79 year old M with Pneumonia, . Height: 5 feet, 8 inches Weight: 72.0 kg [place] Body Weight: 68.40 Adjusted Body Weight: 69.84 Dosing Weight: Actual Other Antibiotics: ZOSYN 4.5GM Q6HRS LABS: Last BUN: 22 Last Creatinine: 1 Creatinine Clearance: 55.8 Last WBC: 9.3 Last Procalcitonin: Tmax (past 24 hours): Microbiology: I/O: Drug Levels: Last Trough level: 12.8 on 04/01/20 at 1430 Last dose given 04/02/20 at 0300 Vancomycin Dosing: Loading Dose: 1750 mg x1 Dosing Weight: Actual Target Trough: 15-20 A: Based on: P: 1. Change Vancomycin 1500 mg IV q12h from 1250mg q12hrs 2. Follow up Trough level on 04/03/20 at 1430 3. Pharmacy will continue to monitor, follow and adjust therapy as needed. HALEY JONES [facility], 04/02/20 [id number]
[2020-04-02] MEDS: LACTOBACILLUS RHAMNOSUS GG 1 CAPSULE. PO SCH ×2 (11:05→20:24)
[2020-04-02] MEDS: MEMANTINE 10 MG TABLET. PO SCH ×2 (11:05→20:24)
[2020-04-02] MEDS: ASPIRIN CHEWABLE 81 MG TABLET. PO SCH (11:05)
[2020-04-02] MEDS: POLYETHYLENE GLYCOL 3350 17 GM PACKET. PO SCH (11:05)
[2020-04-02] MEDS: DOCUSATE SODIUM 100 MG CAPSULE PO SCH ×2 (11:05→20:24)
[2020-04-02] MEDS: CITALOPRAM 20 MG TABLET. PO SCH (11:05)
[2020-04-02] MEDS: SERTRALINE 50 MG TABLET. PO SCH (11:05)
[2020-04-02] MEDS: LORazepam 0.5 MG TABLET PO SCH (11:05)
[2020-04-02] MEDS: OLANZapine 2.5 MG TABLET PO SCH (11:05)
[2020-04-02] MEDS: CHOLECALCIFEROL (VITAMIN D3) 1,000 UNIT TABLET PO SCH (11:05)
[2020-04-02] MEDS: TAMSULOSIN 0.4 MG CAP.ER.24H. PO SCH (11:05)
[2020-04-02 12:47] VITALS: BP 147/63
[2020-04-02] MEDS: ENOXAPARIN 40 MG/0.4 ML SYRINGE. SQ SCH (14:38)
[2020-04-02 15:00] VITALS: BP 142/70
[2020-04-02] MEDS ORDERED: VANCOMYCIN 1.5 GM in IV NORMAL SALINE 500ML 500 ML IV SCH (15:00)
--- NOTE | 2020-04-02 15:30 | NUR ---
DEIDRE followed up with pt son, Richie to see if he had any questions. iRchie reports that he has been talking to the nurses and getting updates on pt. DEIDRE will continue to follow up with Richie and pt facility as pt progression continues. Based of the physician notes, pt is on 3L of oxygen and less lethargic than his initial first few days on 1SOU. DEIDRE explained that as pt finishes his antibiotic, he will be able to have another chest x-ray and pt would have to have a negative Covoid test prior to admitting back to [facility].
--- NOTE | 2020-04-02 15:36 | NUR ---
DEIDRE contacted EMMANUEL Villalobos at [facility]. DEIDRE gave her an update on how pt is doing and his current treatment plan. Wilfredo reports that they would love for pt be return back off oxygen as he is very active and has concern that with him coming back on oxygen that it will pose a problem for him. She reports that he will also need 2 negative Covoid test 24 hours apart from one another. DEIDRE will continue to keep Wilfredo up to date on pt progression.
[2020-04-02] MEDS: [UNRECOGNIZED DRUG - OTHER] IV SCH (16:00)
[2020-04-02] MEDS: NORMAL SALINE IV SCH (16:00)
[2020-04-02] MEDS ORDERED: FUROSEMIDE 40 MG/4 ML VIAL ONE (16:16)
[2020-04-02] MEDS ORDERED: FUROSEMIDE 40 MG/4 ML VIAL IVP ONE (16:30)
--- NOTE | 2020-04-02 16:36 | RAD ---
EXAM: CHEST AP ONLY INDICATION: Reason: WORSENING SHORTNESS OF BREATH / Spl. Instructions: / History: . TECHNIQUE: Single view COMPARISON: 03/28/2020 chest x-ray FINDINGS: The heart size is normal. The great vessels appear unremarkable. There is no hilar or mediastinal mass. Lungs show interval worsening aeration in the right lung with slightly lower volumes but more confluent consolidation in the right lung. There is no pleural effusion or pneumothorax. There are no significant osseous abnormalities. IMPRESSION: Worsening pneumonitis/pneumonia in the right lung affecting multiple lobes. Electronically signed by: Nanci Patterson MD (04/02/2020 4:33 PM) [id number]
--- NOTE | 2020-04-02 17:30 | PN ---
DATE: 04/02/2020 SUBJECTIVE: The patient is resting, slightly propped up in bed, in no apparent respiratory distress; however, the nursing staff states he has been more agitated and seemed to be also more congested and therefore his IV fluids were discontinued. He is now on 4.5 liters of oxygen. PHYSICAL EXAMINATION: GENERAL: When I examined him, he looked well and was clearly in no apparent respiratory distress. No pallor, jaundice, cyanosis or thyromegaly. No jugular venous distention or limb edema. VITAL SIGNS: His heart rate was 47, blood pressure was 147/63, temperature 97, respiratory rate 24 and oxygen saturation was 92% on 4 liters of oxygen. HEAD, EYES, EARS, NOSE AND THROAT: Showed normocephalic, atraumatic. NECK: Supple. HEART: Showed normal first and second heart sounds. No gallop, rub or murmur. CHEST: Clear to auscultation. No crepitation or rhonchi. ABDOMEN: Distended, soft, nontender. No guarding or rigidity. No organomegaly. All hernial orifices intact. Bowel sounds normal. NEUROLOGIC: He was awake, alert, responding appropriately. All cranial nerves intact. He is very profoundly demented, but without any obvious lateralizing sign. His intake was 1760, no output was recorded. LABORATORY DATA: Showed a white cell count 9300, hemoglobin 12.7, hematocrit 39, MCV 90 and platelet count 270,000. Serum sodium was 138, potassium 3.9, chloride 109, bicarbonate 21, anion gap of 8, BUN 22, creatinine 1, estimated GFR was 72 mL per minute, his glucose 114, calcium was 7.6. Total bilirubin and alkaline phosphatase normal. AST, ALT slightly elevated. Total protein was 5.6, albumin was 2.1. His D-dimer was high at 2.78. ASSESSMENT: 1. This is an 79-year-old male patient who was admitted with possible COVID-19 pneumonia versus atypical pneumonia. 2. Acute hypoxic respiratory failure. 3. Other medical problems include: A. Central demyelination of the corpus callosum. B. Emphysema. C. Dysphagia. D. Prostate cancer. E. Coronary artery disease. F. Senile macular degeneration. PLAN: I discontinued his IV vancomycin. I cut down his Solu-Medrol to 40 mg twice a day. I will arrange for him to have a chest x-ray and continue with all other psychotropic medication. CODY FLEMING MD DR: SHAKILA/velia JOB#: [id number] / [id number]
[2020-04-02 19:25] VITALS: BP 110/41
[2020-04-02] MEDS: OLANZapine 5 MG TABLET PO SCH (20:24)
[2020-04-02] MEDS: traZODone 100 MG TABLET. PO PRN (20:24)
[2020-04-03 05:35] VITALS: BP 135/78
[2020-04-03] MEDS: PIPERACILLIN/TAZOBACTAM 4.5 GM in IV NORMAL SALINE 50ML 50 ML IV SCH ×3 (05:36→18:17)
[2020-04-03 06:27] LABS: ALBUMIN 2.2 g/dL (3.4-5.0); DIRECT BILIRUBIN 0.2 mg/dL (0.0-0.2); TOTAL BILIRUBIN 0.4 mg/dL (0.2-1.0); TOTAL PROTEIN 5.9 g/dL (6.4-8.2)
[2020-04-03] MEDS: CHOLECALCIFEROL (VITAMIN D3) 1,000 UNIT TABLET PO SCH (08:20)
[2020-04-03] MEDS: ASPIRIN CHEWABLE 81 MG TABLET. PO SCH (08:20)
[2020-04-03] MEDS: methylPREDNISolone SOD SUCC PF 40 MG/ML VIAL. IV SCH ×2 (08:20→20:12)
[2020-04-03] MEDS: LACTOBACILLUS RHAMNOSUS GG 1 CAPSULE. PO SCH ×2 (08:20→20:12)
[2020-04-03] MEDS: LORazepam 0.5 MG TABLET PO SCH (08:20)
[2020-04-03] MEDS: OLANZapine 2.5 MG TABLET PO SCH (08:21)
[2020-04-03] MEDS: POLYETHYLENE GLYCOL 3350 17 GM PACKET. PO SCH (08:21)
[2020-04-03] MEDS: DOCUSATE SODIUM 100 MG CAPSULE PO SCH ×2 (08:21→20:13)
[2020-04-03] MEDS: TAMSULOSIN 0.4 MG CAP.ER.24H. PO SCH (08:21)
[2020-04-03] MEDS: SERTRALINE 50 MG TABLET. PO SCH (08:21)
[2020-04-03] MEDS: MEMANTINE 10 MG TABLET. PO SCH ×2 (08:21→20:13)
[2020-04-03] MEDS: CITALOPRAM 20 MG TABLET. PO SCH (08:21)
[2020-04-03] MEDS: ENOXAPARIN 40 MG/0.4 ML SYRINGE. SQ SCH (10:54)
[2020-04-03] MEDS: LORazepam 0.5 MG TABLET PO PRN (10:54)
[2020-04-03 11:02] VITALS: BP 100/66
[2020-04-03] MEDS: OLANZapine IM 10 MG VIAL. IM PRN ×2 (11:51→22:23)
--- NOTE | 2020-04-03 12:27 | PN ---
DATE: 04/03/2020 ATTENDING PHYSICIAN: Dr. Phoenix. SUBJECTIVE: Very confused, requiring a personal patient safety tech. He is hunched over in bed. He is not aware of what is going on. He is bedridden and too weak to walk. OBJECTIVE FINDINGS: VITAL SIGNS: Today, his blood pressure is 135/78 mmHg, oxygen saturation 95% on 4 liters of nasal cannula, temperature 97.9 degrees Fahrenheit, pulse is 59 and regular. HEENT: Head is without trauma. Pupils are reactive. Oropharynx clear. Mucous membranes dry. NECK: Supple, no bruits. LUNGS: Coarse rhonchi bilaterally. CARDIOVASCULAR: Showed distant heart tones. No gallops. ABDOMEN: Soft, scaphoid, nontender. EXTREMITIES: Without edema. He is in the position. He is nonambulatory. Speech is rambling, very confused. LABORATORY DATA: Chest x-ray reviewed. Hemoglobin yesterday was 12.7 g/dL with white count of 9300. Chemistry panel is fairly unremarkable. Nonfasting blood sugar is 114. Transaminases slightly elevated with a normal bilirubin. ASSESSMENT: 1. An 79-year-old gentleman from the [facility] with atypical pneumonia. 2. Acute on chronic hypoxemic respiratory failure. 3. COVID-19 pneumonia versus atypical pneumonia. 4. Central demyelination in the corpus callosum. 5. 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 6. Dysphagia. 7. History of prostate cancer. 8. Macular degeneration. PLAN: 1. Continue steroids as ordered. 2. Continue antibiotics. 3. Meds reviewed. 4. Diet as tolerated. The patient is a DNR per advanced directives. LIZET HUNG MD DR: PARADISE/velia JOB#: [id number] / [id number]
[2020-04-03 14:36] VITALS: BP 113/59
[2020-04-03] MEDS: NORMAL SALINE IV SCH (16:58)
[2020-04-03] MEDS: [UNRECOGNIZED DRUG - OTHER] IV SCH (16:58)
[2020-04-03 18:24] VITALS: BP 137/67
[2020-04-03] MEDS: OLANZapine 5 MG TABLET PO SCH (20:14)
[2020-04-03] MEDS: traZODone 100 MG TABLET. PO PRN (21:38)
[2020-04-04 00:18] VITALS: BP 125/62
[2020-04-04] MEDS: PIPERACILLIN/TAZOBACTAM 4.5 GM in IV NORMAL SALINE 50ML 50 ML IV SCH ×2 (00:29→06:05)
[2020-04-04 06:12] VITALS: BP 117/80
[2020-04-04 06:28] LABS: ALBUMIN 2.2 g/dL (3.4-5.0); DIRECT BILIRUBIN 0.2 mg/dL (0.0-0.2); TOTAL BILIRUBIN 0.4 mg/dL (0.2-1.0); TOTAL PROTEIN 5.8 g/dL (6.4-8.2)
[2020-04-04 08:49] VITALS: BP 123/68
[2020-04-04] MEDS ORDERED: MORPHINE SULFATE 4 MG/ML DISP.SYRIN. IV PRN (09:45)
--- NOTE | 2020-04-04 09:46 | NUR ---
DEIDRE contacted Richie to discuss pt decline and the recommendation that hospice would be needed. DEIDRE informed pt son that his BP was 90/54, pulse 48 and oxygen at 89% with being on 5L. SW explained that his chest sounds do not sound well and he will most likely continue to worsen despite being on antibiotics and other medications to aid in his Covid symptoms. Pt son questioned the pneumonia and DEIDRE explained that under the circumstances, it was more than likely covid related pneumonia and not something separate. Richie agreed to [facility] hospice and DEIDRE would be in contact in the event that anything would change. DEIDRE did offer for Richie to see pt via [facility] and he will talk to his sister to see what can be arranged, as his sister lives in [place].
--- NOTE | 2020-04-04 10:02 | PN ---
DATE: 04/04/2020 ATTENDING PHYSICIAN: Dr. Phoenix and Dr. Hung. SUBJECTIVE: He is very weak. He is requiring more oxygen. He is not complaining of pain. He is confused as to where he is. OBJECTIVE: VITAL SIGNS: Blood pressure today is 123/68 mmHg, pulse 77 and regular, temperature 98.1 degrees Fahrenheit, oxygen saturation 87% on 4 liters, oxygen has been increased. HEENT: Head is without trauma. Pupils are reactive. Sclerae nonicteric. Oropharynx is clear. NECK: Supple, no bruits identified. LUNGS: Shallow respirations with coarse rhonchi at the right base. CARDIOVASCULAR: Showed regular heart tones. No gallops. Peripheral pulses are palpable and weak. ABDOMEN: Soft, no guarding or rebound tenderness. EXTREMITIES: Showed no cyanosis or edema. NEUROLOGIC: The patient is bedridden. He is confused and disoriented. Chest x-ray was reviewed. He has consolidation and infiltrates entire right lung field, including right upper lobe, right middle lobe and right lower lobe. ASSESSMENT 1. An 79-year-old gentleman from the [facility] with a definite pneumonia on chest x-ray. Whether this is COVID-19 versus atypical pneumonia remains to be seen. 2. [id number] hypoxemic respiratory failure. 3. Chronic obstructive pulmonary disease. 4. Central demyelination of the corpus callosum. 5. Oxygen-dependent chronic obstructive pulmonary disease. 6. Dysphagia. 7. History of prostate cancer. 8. Macular degeneration. PLAN: 1. Continue antibiotics and steroids as ordered. 2. Comfort measures. 3. Family notified of his decline. He may be actively dying. He is a DNR per advanced directive. Morphine has been ordered for comfort measures. LIZET HUNG MD DR: PARADISE/velia JOB#: [id number] / [id number]
--- NOTE | 2020-04-04 10:07 | NUR ---
DEIDRE also notified Wilfredo at [facility] to inform her that pt will be starting on Hospice as he continues to decline. Wilfredo questioned if the family would be able to see him and DEIDRE reported that the details of that will be worked out. Wilfredo would still like to be notified of pt progression.
[2020-04-04 11:45] VITALS: BP 121/67
[2020-04-04] MEDS: LORazepam 0.5 MG TABLET PO SCH (11:51)
[2020-04-04] MEDS: DOCUSATE SODIUM 100 MG CAPSULE PO SCH (11:51)
[2020-04-04] MEDS: CITALOPRAM 20 MG TABLET. PO SCH (11:51)
[2020-04-04] MEDS: ASPIRIN CHEWABLE 81 MG TABLET. PO SCH (11:51)
[2020-04-04] MEDS: SERTRALINE 50 MG TABLET. PO SCH (11:51)
[2020-04-04] MEDS: OLANZapine 2.5 MG TABLET PO SCH (11:51)
[2020-04-04] MEDS: CHOLECALCIFEROL (VITAMIN D3) 1,000 UNIT TABLET PO SCH (11:51)
[2020-04-04] MEDS: TAMSULOSIN 0.4 MG CAP.ER.24H. PO SCH (11:51)
[2020-04-04] MEDS: LACTOBACILLUS RHAMNOSUS GG 1 CAPSULE. PO SCH (11:51)
[2020-04-04] MEDS: methylPREDNISolone SOD SUCC PF 40 MG/ML VIAL. IV SCH (11:52)
[2020-04-04] MEDS: POLYETHYLENE GLYCOL 3350 17 GM PACKET. PO SCH (11:52)
[2020-04-04] MEDS: MEMANTINE 10 MG TABLET. PO SCH (11:54)
--- NOTE | 2020-04-04 12:23 | DS ---
DATE OF DISCHARGE: 04/04/2020 ATTENDING PHYSICIAN: Dr. Phoenix. FINAL DISCHARGE DIAGNOSES: 1. Acute on chronic hypoxemic respiratory failure. 2. Advanced chronic obstructive pulmonary disease. 3. Atypical pneumonia, right lung field. 4. COVID-19 positive swabs, superimposed on atypical pneumonia. 5. Profound dementia. 6. Central demyelination of the corpus callosum. 7. Dysphagia. 8. History of prostate cancer. 9. Macular degeneration. HISTORY AND PHYSICAL: This is an 79-year-old gentleman, transferred from the [facility] with generalized weakness, fevers, and exposure to COVID-19 coronavirus. X-rays also demonstrated a significant infiltrate in the right middle lobe and right lower lobe, possibly this could be aspiration. It is atypical in nature and it is asymmetric. He was started on empiric antibiotics. PHYSICAL EXAMINATION: Please see the dictated note. PERTINENT LABORATORY AND X-RAY STUDIES: Chest x-ray on admission showed worsening pneumonia in the right lung affecting multiple lobes. Hemoglobin was maintained at 12.7 g/dL with a white count of 9300. Electrolytes were within normal range. Nonfasting blood sugar 114. COURSE IN THE HOSPITAL: The patient was admitted and started on empiric IV antibiotics. He was very hard of hearing and required a personal manager security and safety to keep him from pulling out his IV. He received 6 full days of intravenous Zosyn. Followup x-ray shows worsening of infiltrate. He became progressively weaker and had been in decline. The family requests end of life care. Therefore, on the seventh hospital day, the patient was still in the same room, technically discharged from our hospital, but to be readmitted for inpatient hospice care through the contract with the hospice facility. At this time, we will decide what medicines to continue. Morphine and supplemental oxygen along with his current regimen will be continued until further review by hospice physician, Dr. Phoenix. His prognosis is terminal. LIZET HUNG MD DR: PARADISE/velia JOB#: [id number] / [id number] CODY Ahn MD
== END 2020-04-04 15:03 | disposition hospice, inpatient (51) | DRG 177 ==
LOC: 1 SOUTH 11:24
PROVIDERS: ADMIT Internal Medicine; ATTEND Internal Medicine
PROC: XW033E5 Introduction of Remdesivir Anti-infective into Peripheral Vein, Percutaneous Approach, New Technology Group 5 (ICD-10-PCS; principal; 2020-03-29)
DX: U07.1 COVID-19 (principal); J96.01 Acute respiratory failure with hypoxia; J96.21 Acute and chronic respiratory failure with hypoxia; J69.0 Pneumonitis due to inhalation of food and vomit; F05 Delirium due to known physiological condition; G37.1 Central demyelination of corpus callosum; E78.5 Hyperlipidemia, unspecified; F02.80 Dementia in other diseases classified elsewhere, unspecified severity, without behavioral disturbance, psychotic disturbance, mood disturbance, and anxiety; G30.9 Alzheimer's disease, unspecified; G47.00 Insomnia, unspecified; H35.30 Unspecified macular degeneration; H91.90 Unspecified hearing loss, unspecified ear; I25.10 Atherosclerotic heart disease of native coronary artery without angina pectoris; J43.2 Centrilobular emphysema; R13.10 Dysphagia, unspecified; Z51.5 Encounter for palliative care; Z74.01 Bed confinement status; Z85.46 Personal history of malignant neoplasm of prostate; Z87.891 Personal history of nicotine dependence; Z99.81 Dependence on supplemental oxygen; F41.9 Anxiety disorder, unspecified; Z66 Do not resuscitate
CPT/HCPCS: 36415; 71045; 80053; 80076; 80202; 82248; 85027; 85379; 86140; J1650; J1940; J2543; J2920; J3370; J3490; J7040; J7050; J7030

== ENCOUNTER 2020-04-04 10:46 | Inpatient (IN) | payer OTHER ==
[~2020-04-04] VITALS: Ht 172.7 cm; Wt 81.9 kg
[~2020-04-04 10:46] MED LIST changes: +ESCI5SOL9 PO
[2020-04-04] MEDS ORDERED: ACETAMINOPHEN 650 MG SUPP.RECT. PR PRN (15:45)
[2020-04-04 16:19] VITALS: BP 113/62
[2020-04-04] MEDS: BISACODYL 10 MG SUPP.RECT PR SCH (16:30)
[2020-04-04] MEDS: SCOPOLAMINE 1.5MG PATCH. TD SCH (18:01)
--- NOTE | 2020-04-04 19:00 | NUR ---
Pt admitted to inpatient comfort care on previous shift, with consult to [facility] hospice, due to declining condition. Pt on supplemental O2 at 6L via high flow NC, sating low 90's at rest. Pt started on morphine continuous infusion at 2mg/hr for pain/air hunger. Baxter in place for end of life care. 1:1 staff at bedside for safety.
[2020-04-04] MEDS: MORPHINE SULFATE 30 MG/30 ML 30 ML IV PRN (19:12)
[2020-04-04 19:46] VITALS: BP 118/58
[2020-04-05 06:34] VITALS: BP 111/56
[2020-04-05] MEDS: MORPHINE SULFATE 30 MG/30 ML 30 ML IV PRN ×2 (07:36→20:29)
--- NOTE | 2020-04-05 07:57 | NUR ---
IP: patient +COVID-19, requires contact and airborne precautions.
[2020-04-05] MEDS: BISACODYL 10 MG SUPP.RECT PR SCH (09:00)
--- NOTE | 2020-04-05 13:30 | NUR ---
PATIENT IS CURRENTLY IN A BED RESTING COMFORTABLY. PATIENT IS ON MORPHINE CONTINUOUS INFUSION AT 2MG/HR FOR PAIN AND AIR HUNGER. VS OBTAINED, BP IS 70/41. MELIDA TEACHING YOUNG IS AT THE BED SIDE AND AWARE OF PT BP AND CONDITION. WILL CONTINUE TO MONITOR.
[2020-04-05 14:14] VITALS: BP 70/41
[2020-04-05 18:59] VITALS: BP 81/42
[2020-04-06] MEDS: BISACODYL 10 MG SUPP.RECT PR SCH (08:47)
[2020-04-06] MEDS: MORPHINE SULFATE 30 MG/30 ML 30 ML IV PRN ×2 (11:11→22:31)
[2020-04-06 18:56] VITALS: BP 100/78
[2020-04-06] MEDS ORDERED: MORPHINE SULFATE 10 MG/ML SYRINGE. ONE (21:30)
[2020-04-07 06:37] VITALS: BP 94/72
[2020-04-07] MEDS: SCOPOLAMINE 1.5MG PATCH. TD SCH (08:31)
[2020-04-07] MEDS: BISACODYL 10 MG SUPP.RECT PR SCH (09:00)
[2020-04-07] MEDS: MORPHINE SULFATE 30 MG/30 ML 30 ML IV PRN (12:20)
[2020-04-08] MEDS ORDERED: MORPHINE SULFATE 10 MG/ML SYRINGE. ONE (02:23)
[2020-04-08] MEDS: MORPHINE SULFATE 30 MG/30 ML 30 ML IV PRN ×3 (02:42→20:42)
[2020-04-08] MEDS: BISACODYL 10 MG SUPP.RECT PR SCH (11:07)
[2020-04-08] MEDS ORDERED: SCOPOLAMINE 1.5MG PATCH. TD SCH (13:00)
[2020-04-08 14:55] VITALS: BP 110/67
[2020-04-08 19:29] VITALS: BP 112/68
[2020-04-09] MEDS: MORPHINE SULFATE 30 MG/30 ML 30 ML IV PRN ×6 (00:22→21:29)
[2020-04-09] MEDS: BISACODYL 10 MG SUPP.RECT PR SCH (08:59)
[2020-04-09 20:59] VITALS: BP 85/57
[2020-04-10] MEDS: MORPHINE SULFATE 30 MG/30 ML 30 ML IV PRN ×2 (01:40→05:57)
--- NOTE | 2020-04-10 06:38 | NUR ---
PT with noted arrhythmias, morphine and ativan due. PT given Ativan and then morphine connected. PT with noted apneic episodes. Irregular heartbeat noted at this time. Mottling noted to skin. This nurse remained with PT for continued assessment. PT noted asystolic within a few minutes which remained as well as apenic. Auscultation of heart and lungs noted no heartbeat or breath sounds. Space Planner called. Secondary verification performed. Time of 0610.
--- NOTE | 2020-04-10 07:17 | NUR ---
At approx 0603, I was summoned to patient's room. I assessed the patient and noted the following findings: apical pulse auscultated for one minute and no heart sounds heard; breath sounds auscultated in the upper lobes and lower lobes anteriorly for 15 seconds in each area - no breath sounds heard; no reaction to sternal rub noted; pupils fixed and dilated. Patient was pronounced at 0610. Son, Richie, was notified of father's at 0625. Son stated that arrangements had been made with [facility] in [place], [place]. Home, Dr. Phoenix, [facility] and [facility] notified of . IV and marroquin were removed and body placed in a shroud. Pt's belonging (clothing, shoes, dentures, and 2 rings were gathered and placed in patient belonging bags. Hand-off report given to SHELDON Sylvester.
--- NOTE | 2020-04-10 14:03 | NUR ---
NSG NOTE; RELEASE OF BODY TO [facility] AT 0900 WITH ALL PERSONAL BELONGINGS SENT WITH THEM.
--- NOTE | 2020-04-19 11:44 | DS ---
DATE OF DISCHARGE: 04/10/2020 HOSPITAL COURSE: The patient is an 79-year-old male patient who was originally admitted to [facility] for inpatient psychiatric stabilization. However, he was transferred to [address] [place] [address] under investigation for possible COVID pneumonia and he eventually was diagnosed with COVID-19 pneumonia, was treated with IV antibiotic. However, his condition has deteriorated. His chest x-ray has worsened as well as his lab work and oxygen requirement and therefore, the patient was admitted to inpatient hospice care. His condition has deteriorated and at around 06:25 on 04/10, the patient was found to have fixed, dilated pupils, no spontaneous breathing, no audible heart sounds and no palpable pulsation, was pronounced at 06:25. FINAL DISCHARGE DIAGNOSES: 1. Acute cardiopulmonary arrest. 2. Acute hypoxic respiratory failure. 3. Adult respiratory distress syndrome. 4. COVID-19 pneumonia. Other contributing factors include dysphagia, severe emphysema. CODY FLEMING MD DR: SHAKILA/velia JOB#: [id number] / [id number]
== END 2020-04-10 09:00 | disposition expired | DRG 177 ==
LOC: 1 SOUTH 15:05
PROVIDERS: ADMIT Internal Medicine; ATTEND Internal Medicine
DX: U07.1 COVID-19 (principal); J96.01 Acute respiratory failure with hypoxia; J12.89 Other viral pneumonia; I46.9 Cardiac arrest, cause unspecified; J43.9 Emphysema, unspecified; Z79.899 Other long term (current) drug therapy
CPT/HCPCS: J2060; J2270; Q5005